=== PATIENT | male | born 1935 | race Caucasian/White ===

== ENCOUNTER → 2018-12-26 | Outpatient (CLI) | payer MEDICARE ==
[2018-12-12 07:00] VITALS: BP 165/89
[~2018-12-26] MED LIST: ALBU2.5V8 INH; ALLO100T PO; ASPI81TA50 PO; ATOR20TA58 PO; BUPR150T6 PO; CITA20TA6 PO; CYAN-25 PO; DOXY100T PO; ERGO500027 PO; GUAI100L12 PO; LIDO700A21 TD; PANT40TA77 PO
--- NOTE | 2018-12-26 13:00 | RAD ---
Chest, PA and Lateral: Technique: PA and lateral views of the chest were obtained. History: Pneumothorax. Comparison: 12/12/2018. Findings: The cardiomediastinal silhouette grossly appears unremarkable. Peripheral consolidation changes identified in the right upper lobe, left midlung zone and in the left lung base similar to prior exam probably chronic consolidations. Diffuse prominent appearing bilateral interstitial lung markings likely chronic interstitial changes again identified. Mild left lung base airspace opacities likely atelectasis or infiltrates slightly increased since prior exam. Small left pneumothorax is unchanged. IMPRESSION: 1. Chronic consolidations of the bilateral lungs again identified. 2. Small left pneumothorax unchanged. 3. Left lung base airspace opacities likely atelectasis or infiltrates mildly increased.. Electronically signed by: Abebe Zepeda MD (12/26/2018 12:57 PM) [id number]
== END | disposition home or self-care (01) ==
LOC: RAD 11:43
PROVIDERS: ATTEND Internal Medicine Critical Care Medicine
DX: R91.8 Other nonspecific abnormal finding of lung field (principal); J93.9 Pneumothorax, unspecified
CPT/HCPCS: 71046

== ENCOUNTER 2019-01-08 15:51 | Inpatient (IN) | payer MEDICARE ==
[~2019-01-08] VITALS: Ht 175.3 cm; Wt 56.2 kg
[2019-01-08 17:00] VITALS: BP 106/69
[2019-01-08 19:00] VITALS: BP 90/45
[2019-01-08] MEDS ORDERED: guaiFENesin ORAL 200 MG/10 ML LIQUID. PO PRN (19:00)
--- NOTE | 2019-01-08 19:06 | PDOC1 ---
History and Physical Date of Admission Date of Admission DATE: 01/08/19 TIME: 19:00 Source Source: Caregiver, Chart review, Patient History of Present Illness History of Present Illness Mr. Yusuf was hospitalized here 12/06 to 12/12 for pneumonia, pleural effusion and small pneumothorax. treated with antibiotics and he had felt well, but for the past 2 weeks, he has been declining, with worsening weakness and fatigue. He is sleeping most of the days, and describes a "feeling of doom" that he is getting worse. He has depression, was recently stopped on his wellbutrin, I am unsure why. he feels marked fatigue and has cough at times and ongoing trouble breathing. 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 Past Medical History Cardiovascular: CAD, HTN, Hyperlipidemia Pulmonary: Pneumonia GI: No pertinent hx Heme/Onc: No pertinent hx Hepatobiliary: No pertinent hx Psych: No pertinent hx Rheumatologic: Gout Infectious disease: No pertinent hx Renal/: No pertinent hx Endocrine: No pertinent hx Past Surgical History Past Surgical History: No pertinent history Family History Family History: Alcohol Abuse, High Cholestrol, Hypertension Social History Smoke: No ALCOHOL: other Drugs: None Current Medications Current Medications Current Medications Allopurinol (Zyloprim) 100 mg HS PO ; Start 01/08/19 at 21:00; Status UNV Aspirin (Ecotrin) 81 mg HS PO ; Start 01/08/19 at 21:00; Status UNV Atorvastatin Calcium (Lipitor) 20 mg HS PO ; Start 01/08/19 at 21:00; Status UNV Citalopram Hydrobromide (CeleXA) 20 mg HS PO ; Start 01/08/19 at 21:00; Status UNV Cyanocobalamin (Vitamin B-12) 1,000 mcg DAILY PO ; Start 01/09/19 at 09:00; Status UNV Guaifenesin (Robitussin) 200 mg PRN Q4HRS PRN PO COUGH; Start 01/08/19 at 19:00; Status UNV Lidocaine (Lidoderm) 1 patch DAILY TD ; Start 01/09/19 at 09:00; Status UNV Pantoprazole Sodium (Protonix) 40 mg HS PO ; Start 01/08/19 at 21:00; Status UNV Miscellaneous (Lidoderm Patch Removal) 1 ea QHS MC ; Start 01/08/19 at 21:00; Status UNV Zolpidem Tartrate (Ambien) 5 mg HS PO ; Start 01/08/19 at 21:00; Status UNV Lorazepam (Ativan Inj) 2 mg PRN Q1HR PRN IV For CIWA 8-14; Start 01/08/19 at 19:00; Status UNV Lorazepam (Ativan Inj) 4 mg PRN Q1HR PRN IV For CIWA 15 or greater; Start 01/08/19 at 19:00; Status UNV Lorazepam (Ativan) 0.5 mg PRN Q8HRS PRN PO ANXIETY / AGITATION; Start 01/08/19 at 19:00; Status UNV Active Scripts Active Proair Hfa Inhaler (Albuterol Sulfate) 8.5 Gm Hfa.aer.ad 1 Puff INH PRN Q6HRS PRN 30 Days Lidocaine PATCH (Lidocaine) 1 Each Adh..patch 1 Patch TD DAILY Vitamin D2 (Ergocalciferol (Vitamin D2)) 50,000 Unit Capsule 50,000 Unit PO WEEKLY Vitamin B-12 (Cyanocobalamin (Vitamin B-12)) 1,000 Mcg Tablet 1,000 Mcg PO DAILY Guaifenesin 100 Mg/5 Ml Liquid 200 Mg PO PRN Q4HRS PRN 7 Days Doxycycline Hyclate 100 Mg Tablet 100 Mg PO BID Reported Bupropion Xl (Bupropion Hcl) 150 Mg Tab.er.24h 75 Mg PO HS Protonix (Pantoprazole Sodium) 40 Mg Tablet. 40 Mg PO HS Citalopram Hbr (Citalopram Hydrobromide) 20 Mg Tablet 20 Mg PO HS Allopurinol 100 Mg Tablet 100 Mg PO HS Atorvastatin Calcium 20 Mg Tablet 20 Mg PO HS Aspir-Low (Aspirin) 81 Mg Tablet. 81 Mg PO HS Allergies Allergies: Coded Allergies: lisinopril (Verified Allergy, Severe, THROAT CLOSING, 12/06/18) Physical Exam General: Alert, Oriented X3, Cooperative, No acute distress HEENT: PERRLA, Mucous membr. moist/pink Lungs: Clear to auscultation, Normal air movement Heart: S1S2, RRR, no murmurs, other (tachy) Abdomen: Normal bowel sounds, Soft PELVIC: Nml ext uterus Extremities: No cyanosis, No edema, Normal pulses Skin: No significant lesion Neuro: Normal gait, Sensation intact, Cranial nerves 3-12 NL Psych/Mental Status: Mental status NL, Mood NL Vitals Vitals Vital Signs Date Time Temp Pulse Resp B/P (MAP) Pulse Ox O2 Delivery O2 Flow Rate FiO2 01/08/19 17:00 97.7 100 24 106/69 (81) 94 Room Air 97.7 VTE Prophylaxis Ordered VTE Prophylaxis Devices: Yes VTE Pharmacological Prophylaxi: Yes Assessment/Plan Assessment/Plan weakness and debility recent pneumonia 1 month ago, traumatic left-sided small pneumothorax. 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
[2019-01-08] MEDS ORDERED: [UNRECOGNIZED DRUG - OTHER] (20:34)
[2019-01-08] MEDS: PATCH REMOVAL. MC SCH (21:00)
[2019-01-08] MEDS: PANTOPRAZOLE 40 MG TABLET.DR. PO SCH (21:01)
[2019-01-08] MEDS: CITALOPRAM 20 MG TABLET. PO SCH (21:01)
[2019-01-08] MEDS: ATORVASTATIN CALCIUM 20 MG TABLET PO SCH (21:02)
[2019-01-08] MEDS: ASPIRIN ENTERIC COATED 81 MG TABLET.DR. PO SCH (21:02)
[2019-01-08] MEDS: ZOLPIDEM 5 MG TABLET. PO SCH (21:02)
[2019-01-08] MEDS: ALLOPURINOL 100 MG TABLET. PO SCH (21:02)
[2019-01-08 23:00] VITALS: BP 104/69
[2019-01-09] MEDS: LORazepam 0.5 MG TABLET PO PRN ×2 (00:40→22:19)
[2019-01-09 03:00] VITALS: BP 119/52
[2019-01-09 04:15] LABS: BASO % 1 % (0-3); EOS # 0.1 x10^3/uL (0.0-0.7); EOS % 1 % (0-3); HEMOGLOBIN 10.2 g/dL (13.0-17.5); LYMPH # 1.6 x10^3/uL (1.0-4.8); LYMPH % 24 % (24-48); MEAN CORPUSCULAR HEMOGLOBIN 31 pg (25-35); MEAN CORPUSCULAR HGB CONC 34 g/dL (31-37); MEAN CORPUSCULAR VOLUME 91 fL (79-100); MONO # 0.9 x10^3/uL (0.0-1.1); MONO % 14 % (0-9); NEUT # 4.1 x10^3/uL (1.8-7.7); NEUT % 61 % (31-73); PLATELET COUNT 405 x10^3/uL (140-400); RED BLOOD COUNT 3.28 x10^6/uL (4.30-5.70); RED CELL DISTRIBUTION WIDTH 14.8 % (11.5-14.5); WHITE BLOOD COUNT 6.7 x10^3/uL (4.0-11.0)
[2019-01-09 04:49] LABS: ALBUMIN 2.3 g/dL (3.4-5.0); ALBUMIN/GLOBULIN RATIO 0.5 (1.0-1.7); CALCIUM 9.3 mg/dL (8.5-10.1); CREATININE 1.2 mg/dL (0.7-1.3); GFR 57.7; POTASSIUM 4.8 mmol/L (3.5-5.1); TOTAL BILIRUBIN 0.4 mg/dL (0.2-1.0); TOTAL PROTEIN 6.9 g/dL (6.4-8.2)
[2019-01-09 07:00] VITALS: BP 113/64
--- NOTE | 2019-01-09 09:11 | RAD ---
CT CHEST WO CONTRAST INDICATION: Organizing pneumonia, recent infection. COMPARISON STUDY: CT chest 12/06/2018. Chest radiograph 01/08/2019. TECHNIQUE: Unenhanced axial images were obtained through the lungs and upper abdomen. Coronal MIP images and coronal and sagittal multiplanar reconstructions were also obtained. PQRS compliance statement: One or more of the following individualized dose reduction techniques were utilized for this examination: 1. Automated exposure control 2. Adjustment of the mA and/or kV according to patient size 3. Use of iterative reconstruction technique FINDINGS: Lungs and Airways: Redemonstration of multifocal bilateral peripheral subpleural consolidations, overall very similar to the prior CT. Bronchial wall thickening. Left lower lobe volume loss and traction bronchiectasis. Scattered endobronchial secretions. Pleura: Persistent small left hydropneumothorax, similar to the prior radiograph allowing for differences in modality. Heart and Mediastinum: The visualized thyroid gland is normal in size and attenuation. No axillary or supraclavicular lymphadenopathy. Stable mediastinal lymphadenopathy, for example stable enlarged right lower paratracheal lymph node measuring 1.1 cm (series 2 image 25). Evaluation of hilar lymph nodes impaired by lack of intravenous contrast. Normal cardiac size. No pericardial effusion. Extensive coronary artery atherosclerotic disease. Atherosclerosis thoracic aorta and branch vessels. Small hiatal hernia. Abdomen: Atherosclerosis of the abdominal aorta and branch vessels. Partially visualized cysts. Bones and Soft Tissues: Multilevel degenerative changes of the spine. Old rib fractures. IMPRESSION: 1. Redemonstration of multifocal bilateral peripheral subpleural consolidations, similar overall in distribution to the prior CT. This likely relates to patient's history of organizing pneumonia, although superimposed infection would be difficult to exclude. 2. Persistent small left hydropneumothorax, similar to the prior radiograph allowing for difference in modality. 3. Stable mediastinal lymphadenopathy. Electronically signed by: Matthew Schofield MD (01/09/2019 9:08 AM) [id number]
[2019-01-09] MEDS: CYANOCOBALAMIN (VITAMIN B-12) 1,000 MCG TABLET. PO SCH (09:13)
[2019-01-09] MEDS: LIDOCAINE (700MG/PATCH) PATCH. TD SCH (09:14)
[2019-01-09 10:59] VITALS: BP 101/65
[2019-01-09 11:00] VITALS: BP 101/65
--- NOTE | 2019-01-09 14:27 | NUR ---
SW following pt for dc planning. Chart reviewed and discussed with RN. Pt lives at home with spouse. No dc recommendation/SW needs noted at this time. Will continue to follow pt pending dc needs.
[2019-01-09 15:00] VITALS: BP 109/62
--- NOTE | 2019-01-09 16:39 | PDOC ---
PROGRESS NOTES Chief Complaint Chief Complaint weakness and debility BOOP, pneumonia 1 month ago, traumatic left-sided small pneumothorax. prior bilateral parenchymal infiltrates weight loss History of Present Illness History of Present Illness discussed with Dr. Gross, CT reviewed, fluid and infiltrate Vitals Vitals Vital Signs Date Time Temp Pulse Resp B/P (MAP) Pulse Ox O2 Delivery O2 Flow Rate FiO2 01/09/19 15:00 97.9 98 18 109/62 (78) 94 Room Air 97.9 Physical Exam General: Alert, Oriented X3, Cooperative, No acute distress Lungs: Clear Abdomen: Normal bowel sounds, Soft Extremities: No cyanosis, No edema, Normal pulses Skin: No significant lesion Labs LABS Laboratory Tests Test 01/09/19 03:20 White Blood Count 6.7 x10^3/uL (4.0-11.0) Red Blood Count 3.28 x10^6/uL (4.30-5.70) Hemoglobin 10.2 g/dL (13.0-17.5) Hematocrit 30.0 % (39.0-53.0) Mean Corpuscular Volume 91 fL (79-100) Mean Corpuscular Hemoglobin 31 pg (25-35) Mean Corpuscular Hemoglobin Concent 34 g/dL (31-37) Red Cell Distribution Width 14.8 % (11.5-14.5) Platelet Count 405 x10^3/uL (140-400) Neutrophils (%) (Auto) 61 % (31-73) Lymphocytes (%) (Auto) 24 % (24-48) Monocytes (%) (Auto) 14 % (0-9) Eosinophils (%) (Auto) 1 % (0-3) Basophils (%) (Auto) 1 % (0-3) Neutrophils # (Auto) 4.1 x10^3/uL (1.8-7.7) Lymphocytes # (Auto) 1.6 x10^3/uL (1.0-4.8) Monocytes # (Auto) 0.9 x10^3/uL (0.0-1.1) Eosinophils # (Auto) 0.1 x10^3/uL (0.0-0.7) Basophils # (Auto) 0.0 x10^3/uL (0.0-0.2) Sodium Level 132 mmol/L (136-145) Potassium Level 4.8 mmol/L (3.5-5.1) Chloride Level 97 mmol/L (98-107) Carbon Dioxide Level 26 mmol/L (21-32) Anion Gap 9 (6-14) Blood Urea Nitrogen 18 mg/dL (8-26) Creatinine 1.2 mg/dL (0.7-1.3) Estimated GFR (Cockcroft-Gault) 57.7 BUN/Creatinine Ratio 15 (6-20) Glucose Level 94 mg/dL (70-99) Calcium Level 9.3 mg/dL (8.5-10.1) Total Bilirubin 0.4 mg/dL (0.2-1.0) Aspartate Amino Transf (AST/SGOT) 17 U/L (15-37) Alanine Aminotransferase (ALT/SGPT) 15 U/L (16-63) Alkaline Phosphatase 68 U/L (46-116) Total Protein 6.9 g/dL (6.4-8.2) Albumin 2.3 g/dL (3.4-5.0) Albumin/Globulin Ratio 0.5 (1.0-1.7) Assessment and Plan Assessmemt and Plan Problems Medical Problems: (1) Weakness Status: Acute Comment Review of Relevant I have reviewed the following items dawn (where applicable) has been applied. Labs Laboratory Tests Test 01/09/19 03:20 White Blood Count 6.7 x10^3/uL (4.0-11.0) Red Blood Count 3.28 x10^6/uL (4.30-5.70) Hemoglobin 10.2 g/dL (13.0-17.5) Hematocrit 30.0 % (39.0-53.0) Mean Corpuscular Volume 91 fL (79-100) Mean Corpuscular Hemoglobin 31 pg (25-35) Mean Corpuscular Hemoglobin Concent 34 g/dL (31-37) Red Cell Distribution Width 14.8 % (11.5-14.5) Platelet Count 405 x10^3/uL (140-400) Neutrophils (%) (Auto) 61 % (31-73) Lymphocytes (%) (Auto) 24 % (24-48) Monocytes (%) (Auto) 14 % (0-9) Eosinophils (%) (Auto) 1 % (0-3) Basophils (%) (Auto) 1 % (0-3) Neutrophils # (Auto) 4.1 x10^3/uL (1.8-7.7) Lymphocytes # (Auto) 1.6 x10^3/uL (1.0-4.8) Monocytes # (Auto) 0.9 x10^3/uL (0.0-1.1) Eosinophils # (Auto) 0.1 x10^3/uL (0.0-0.7) Basophils # (Auto) 0.0 x10^3/uL (0.0-0.2) Sodium Level 132 mmol/L (136-145) Potassium Level 4.8 mmol/L (3.5-5.1) Chloride Level 97 mmol/L (98-107) Carbon Dioxide Level 26 mmol/L (21-32) Anion Gap 9 (6-14) Blood Urea Nitrogen 18 mg/dL (8-26) Creatinine 1.2 mg/dL (0.7-1.3) Estimated GFR (Cockcroft-Gault) 57.7 BUN/Creatinine Ratio 15 (6-20) Glucose Level 94 mg/dL (70-99) Calcium Level 9.3 mg/dL (8.5-10.1) Total Bilirubin 0.4 mg/dL (0.2-1.0) Aspartate Amino Transf (AST/SGOT) 17 U/L (15-37) Alanine Aminotransferase (ALT/SGPT) 15 U/L (16-63) Alkaline Phosphatase 68 U/L (46-116) Total Protein 6.9 g/dL (6.4-8.2) Albumin 2.3 g/dL (3.4-5.0) Albumin/Globulin Ratio 0.5 (1.0-1.7) Laboratory Tests Test 01/09/19 03:20 White Blood Count 6.7 x10^3/uL (4.0-11.0) Red Blood Count 3.28 x10^6/uL (4.30-5.70) Hemoglobin 10.2 g/dL (13.0-17.5) Hematocrit 30.0 % (39.0-53.0) Mean Corpuscular Volume 91 fL (79-100) Mean Corpuscular Hemoglobin 31 pg (25-35) Mean Corpuscular Hemoglobin Concent 34 g/dL (31-37) Red Cell Distribution Width 14.8 % (11.5-14.5) Platelet Count 405 x10^3/uL (140-400) Neutrophils (%) (Auto) 61 % (31-73) Lymphocytes (%) (Auto) 24 % (24-48) Monocytes (%) (Auto) 14 % (0-9) Eosinophils (%) (Auto) 1 % (0-3) Basophils (%) (Auto) 1 % (0-3) Neutrophils # (Auto) 4.1 x10^3/uL (1.8-7.7) Lymphocytes # (Auto) 1.6 x10^3/uL (1.0-4.8) Monocytes # (Auto) 0.9 x10^3/uL (0.0-1.1) Eosinophils # (Auto) 0.1 x10^3/uL (0.0-0.7) Basophils # (Auto) 0.0 x10^3/uL (0.0-0.2) Sodium Level 132 mmol/L (136-145) Potassium Level 4.8 mmol/L (3.5-5.1) Chloride Level 97 mmol/L (98-107) Carbon Dioxide Level 26 mmol/L (21-32) Anion Gap 9 (6-14) Blood Urea Nitrogen 18 mg/dL (8-26) Creatinine 1.2 mg/dL (0.7-1.3) Estimated GFR (Cockcroft-Gault) 57.7 BUN/Creatinine Ratio 15 (6-20) Glucose Level 94 mg/dL (70-99) Calcium Level 9.3 mg/dL (8.5-10.1) Total Bilirubin 0.4 mg/dL (0.2-1.0) Aspartate Amino Transf (AST/SGOT) 17 U/L (15-37) Alanine Aminotransferase (ALT/SGPT) 15 U/L (16-63) Alkaline Phosphatase 68 U/L (46-116) Total Protein 6.9 g/dL (6.4-8.2) Albumin 2.3 g/dL (3.4-5.0) Albumin/Globulin Ratio 0.5 (1.0-1.7) Medications Current Medications Allopurinol (Zyloprim) 100 mg HS PO Last administered on 01/08/19at 21:03; Start 01/08/19 at 21:00 Aspirin (Ecotrin) 81 mg HS PO Last administered on 01/08/19 21:03; Start 01/08/19 at 21:00 Atorvastatin Calcium (Lipitor) 20 mg HS PO Last administered on 01/08/19 21:03; Start 01/08/19 at 21:00 Citalopram Hydrobromide (CeleXA) 20 mg HS PO Last administered on 01/08/19 21:03; Start 01/08/19 at 21:00 Cyanocobalamin (Vitamin B-12) 1,000 mcg DAILY PO Last administered on 01/09/19 09:14; Start 01/09/19 at 09:00 Guaifenesin (Robitussin) 200 mg PRN Q4HRS PRN PO COUGH; Start 01/08/19 at 19:00 Lidocaine (Lidoderm) 1 patch DAILY TD ; Start 01/09/19 at 09:00 Pantoprazole Sodium (Protonix) 40 mg HS PO Last administered on 01/08/19 21:03; Start 01/08/19 at 21:00 Miscellaneous (Lidoderm Patch Removal) 1 ea QHS MC Last administered on 01/08/19 21:03; Start 01/08/19 at 21:00 Zolpidem Tartrate (Ambien) 5 mg HS PO Last administered on 01/08/19 21:03; Start 01/08/19 at 21:00 Lorazepam (Ativan Inj) 2 mg PRN Q1HR PRN IV For CIWA 8-14; Start 01/08/19 at 19:00 Lorazepam (Ativan Inj) 4 mg PRN Q1HR PRN IV For CIWA 15 or greater; Start 01/08/19 at 19:00 Lorazepam (Ativan) 0.5 mg PRN Q8HRS PRN PO ANXIETY / AGITATION Last administer ed on 01/09/19at 00:41; Start 01/08/19 at 19:00 Non-Formulary Medication 1 ea DAILYWSUP PO ; Start 01/09/19 at 17:00; Stop 01/08/19 at 20:03; Status DC Levofloxacin/ Dextrose 100 ml @ 100 mls/hr Q24H IV Last administered on 01/08/19 21:03; Start 01/08/19 at 19:30 Non-Formulary Medication 1 ea DAILYWSUP PO ; Start 01/09/19 at 17:00 Lactobacillus Rhamnosus (Culturelle) 1 cap BID PO ; Start 01/09/19 at 21:00 Active Scripts Active Proair Hfa Inhaler (Albuterol Sulfate) 8.5 Gm Hfa.aer.ad 1 Puff INH PRN Q6HRS PRN 30 Days Lidocaine PATCH (Lidocaine) 1 Each Adh..patch 1 Patch TD DAILY Vitamin D2 (Ergocalciferol (Vitamin D2)) 50,000 Unit Capsule 50,000 Unit PO WEEKLY Vitamin B-12 (Cyanocobalamin (Vitamin B-12)) 1,000 Mcg Tablet 1,000 Mcg PO DAILY Guaifenesin 100 Mg/5 Ml Liquid 200 Mg PO PRN Q4HRS PRN 7 Days Doxycycline Hyclate 100 Mg Tablet 100 Mg PO BID Reported [lactob] Bupropion Xl (Bupropion Hcl) 150 Mg Tab.er.24h 75 Mg PO HS Protonix (Pantoprazole Sodium) 40 Mg Tablet. 40 Mg PO HS Citalopram Hbr (Citalopram Hydrobromide) 20 Mg Tablet 20 Mg PO HS Allopurinol 100 Mg Tablet 100 Mg PO HS Atorvastatin Calcium 20 Mg Tablet 20 Mg PO HS Aspir-Low (Aspirin) 81 Mg Tablet. 81 Mg PO HS Vitals/I & O Vital Sign - Last 24 Hours 01/08/19 01/08/19 01/08/19 01/08/19 17:00 18:00 19:00 20:00 Temp 97.7 97.6 97.7 97.6 Pulse 100 94 Resp 24 24 B/P (MAP) 106/69 (81) 90/45 (60) Pulse Ox 94 90 O2 Delivery Room Air Room Air Room Air Room Air 01/08/19 01/09/19 01/09/19 01/09/19 23:00 03:00 07:00 10:59 Temp 99.0 98.4 97.7 98.5 99.0 98.4 97.7 98.5 Pulse 97 102 100 Resp 18 18 18 B/P (MAP) 104/69 (81) 119/52 (74) 113/64 (80) 101/65 (77) Pulse Ox 92 91 93 O2 Delivery Room Air Room Air Room Air 01/09/19 01/09/19 11:00 15:00 Temp 98.5 97.9 98.5 97.9 Pulse 97 98 Resp 16 18 B/P (MAP) 101/65 (77) 109/62 (78) Pulse Ox 91 94 O2 Delivery Room Air Room Air Intake and Output 01/08/19 01/08/19 01/09/19 15:00 23:00 07:00 Intake Total 0 ml Balance 0 ml CONSTANTINO PHELAN MD Jan 09, 2019 16:39
--- NOTE | 2019-01-09 16:55 | PDOC ---
PULMONARY PROGRESS NOTES Vitals Vital Signs Date Time Temp Pulse Resp B/P (MAP) Pulse Ox O2 Delivery O2 Flow Rate FiO2 01/09/19 15:00 97.9 98 18 109/62 (78) 94 Room Air 97.9 General: Alert, No acute distress HEENT: Other Lungs: Clear Cardiovascular: S1, S2 Abdomen: Soft, Non-tender Extremities: No Edema Labs Laboratory Tests Test 01/09/19 03:20 White Blood Count 6.7 x10^3/uL (4.0-11.0) Red Blood Count 3.28 x10^6/uL (4.30-5.70) Hemoglobin 10.2 g/dL (13.0-17.5) Hematocrit 30.0 % (39.0-53.0) Mean Corpuscular Volume 91 fL (79-100) Mean Corpuscular Hemoglobin 31 pg (25-35) Mean Corpuscular Hemoglobin Concent 34 g/dL (31-37) Red Cell Distribution Width 14.8 % (11.5-14.5) Platelet Count 405 x10^3/uL (140-400) Neutrophils (%) (Auto) 61 % (31-73) Lymphocytes (%) (Auto) 24 % (24-48) Monocytes (%) (Auto) 14 % (0-9) Eosinophils (%) (Auto) 1 % (0-3) Basophils (%) (Auto) 1 % (0-3) Neutrophils # (Auto) 4.1 x10^3/uL (1.8-7.7) Lymphocytes # (Auto) 1.6 x10^3/uL (1.0-4.8) Monocytes # (Auto) 0.9 x10^3/uL (0.0-1.1) Eosinophils # (Auto) 0.1 x10^3/uL (0.0-0.7) Basophils # (Auto) 0.0 x10^3/uL (0.0-0.2) Sodium Level 132 mmol/L (136-145) Potassium Level 4.8 mmol/L (3.5-5.1) Chloride Level 97 mmol/L (98-107) Carbon Dioxide Level 26 mmol/L (21-32) Anion Gap 9 (6-14) Blood Urea Nitrogen 18 mg/dL (8-26) Creatinine 1.2 mg/dL (0.7-1.3) Estimated GFR (Cockcroft-Gault) 57.7 BUN/Creatinine Ratio 15 (6-20) Glucose Level 94 mg/dL (70-99) Calcium Level 9.3 mg/dL (8.5-10.1) Total Bilirubin 0.4 mg/dL (0.2-1.0) Aspartate Amino Transf (AST/SGOT) 17 U/L (15-37) Alanine Aminotransferase (ALT/SGPT) 15 U/L (16-63) Alkaline Phosphatase 68 U/L (46-116) Total Protein 6.9 g/dL (6.4-8.2) Albumin 2.3 g/dL (3.4-5.0) Albumin/Globulin Ratio 0.5 (1.0-1.7) Laboratory Tests Test 01/09/19 03:20 White Blood Count 6.7 x10^3/uL (4.0-11.0) Red Blood Count 3.28 x10^6/uL (4.30-5.70) Hemoglobin 10.2 g/dL (13.0-17.5) Hematocrit 30.0 % (39.0-53.0) Mean Corpuscular Volume 91 fL (79-100) Mean Corpuscular Hemoglobin 31 pg (25-35) Mean Corpuscular Hemoglobin Concent 34 g/dL (31-37) Red Cell Distribution Width 14.8 % (11.5-14.5) Platelet Count 405 x10^3/uL (140-400) Neutrophils (%) (Auto) 61 % (31-73) Lymphocytes (%) (Auto) 24 % (24-48) Monocytes (%) (Auto) 14 % (0-9) Eosinophils (%) (Auto) 1 % (0-3) Basophils (%) (Auto) 1 % (0-3) Neutrophils # (Auto) 4.1 x10^3/uL (1.8-7.7) Lymphocytes # (Auto) 1.6 x10^3/uL (1.0-4.8) Monocytes # (Auto) 0.9 x10^3/uL (0.0-1.1) Eosinophils # (Auto) 0.1 x10^3/uL (0.0-0.7) Basophils # (Auto) 0.0 x10^3/uL (0.0-0.2) Sodium Level 132 mmol/L (136-145) Potassium Level 4.8 mmol/L (3.5-5.1) Chloride Level 97 mmol/L (98-107) Carbon Dioxide Level 26 mmol/L (21-32) Anion Gap 9 (6-14) Blood Urea Nitrogen 18 mg/dL (8-26) Creatinine 1.2 mg/dL (0.7-1.3) Estimated GFR (Cockcroft-Gault) 57.7 BUN/Creatinine Ratio 15 (6-20) Glucose Level 94 mg/dL (70-99) Calcium Level 9.3 mg/dL (8.5-10.1) Total Bilirubin 0.4 mg/dL (0.2-1.0) Aspartate Amino Transf (AST/SGOT) 17 U/L (15-37) Alanine Aminotransferase (ALT/SGPT) 15 U/L (16-63) Alkaline Phosphatase 68 U/L (46-116) Total Protein 6.9 g/dL (6.4-8.2) Albumin 2.3 g/dL (3.4-5.0) Albumin/Globulin Ratio 0.5 (1.0-1.7) Medications Active Scripts Medications Dose Route/Sig Max Daily Dose Days Date Category [lactob] 01/08/19 Reported Proair Hfa Inhaler (Albuterol Sulfate) 8.5 Gm Hfa.aer.ad 1 Puff INH PRN Q6HRS PRN 30 12/12/18 Rx Lidocaine PATCH (Lidocaine) 1 Each Adh..patch 1 Patch TD DAILY 12/12/18 Rx Vitamin D2 (Ergocalciferol (Vitamin D2)) 50,000 Unit Capsule 50,000 Unit PO WEEKLY 12/12/18 Rx Vitamin B-12 (Cyanocobalamin (Vitamin B-12)) 1,000 Mcg Tablet 1,000 Mcg PO DAILY 12/12/18 Rx Guaifenesin 100 Mg/5 Ml Liquid 200 Mg PO PRN Q4HRS PRN 7 12/12/18 Rx Doxycycline Hyclate 100 Mg Tablet 100 Mg PO BID 12/12/18 Rx Bupropion Xl (Bupropion Hcl) 150 Mg Tab.er.24h 75 Mg PO HS 12/06/18 Reported Protonix (Pantoprazole Sodium) 40 Mg Tablet.dr 40 Mg PO HS 12/06/18 Reported Citalopram Hbr (Citalopram Hydrobromide) 20 Mg Tablet 20 Mg PO HS 12/06/18 Reported Allopurinol 100 Mg Tablet 100 Mg PO HS 12/06/18 Reported Atorvastatin Calcium 20 Mg Tablet 20 Mg PO HS 12/06/18 Reported Aspir-Low (Aspirin) 81 Mg Tablet. 81 Mg PO HS 12/06/18 Reported Impression . NOTE DICTATED WILL PROCEED WITH BRONCH FOR NOW CONTINUE THE SAME IRA GRIER MD Jan 09, 2019 16:55
[2019-01-09] MEDS ORDERED: NON FORMULARY ITEM PO SCH (17:00)
[2019-01-09] MEDS: NON FORMULARY ITEM PO SCH (17:01)
[2019-01-09 19:00] VITALS: BP 108/65
[2019-01-09] MEDS: ALLOPURINOL 100 MG TABLET. PO SCH (20:07)
[2019-01-09] MEDS: ZOLPIDEM 5 MG TABLET. PO SCH (20:07)
[2019-01-09] MEDS: LACTOBACILLUS RHAMNOSUS GG 1 CAPSULE. PO SCH (20:07)
[2019-01-09] MEDS: ATORVASTATIN CALCIUM 20 MG TABLET PO SCH (20:08)
[2019-01-09] MEDS: CITALOPRAM 20 MG TABLET. PO SCH (20:08)
[2019-01-09] MEDS: ASPIRIN ENTERIC COATED 81 MG TABLET.DR. PO SCH (20:08)
[2019-01-09] MEDS: PANTOPRAZOLE 40 MG TABLET.DR. PO SCH (20:08)
[2019-01-09] MEDS: PATCH REMOVAL. MC SCH (20:26)
--- NOTE | 2019-01-09 23:03 | CONS ---
DATE OF CONSULTATION: 01/09/2019 ATTENDING PHYSICIAN: Dr. Carter. REASON FOR CONSULTATION: The patient seen in pulmonary consultation at the request of Dr. Carter for abnormal CT chest. HISTORY OF PRESENT ILLNESS: The patient is an 83-year-old that is normally followed by my partner, Dr. Gross in the office. 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 He has chronic bilateral parenchymal infiltrates that have not significantly improved from the previous x-ray. He was seen in the office. The patient complains of low energy level and he is also losing a great deal of weight. He was admitted to the hospital. I was asked to see him in consultation. He did undergo a repeat CT chest. I personally reviewed the CT. There were several findings including multifocal bilateral peripheral subpleural consolidation similar to the previous CT chest dated 12/06/2018. He also has a persistent small left hydropneumothorax similar to previous exam and some stable lymphadenopathy. PAST MEDICAL HISTORY: Remarkable for: 1. Pneumonia, which was initially diagnosed in 04/2018. 2. Presumptive BOOP. 3. History of cataracts. 4. Hyperlipidemia 5. Hypertension. 6. Coronary artery disease with previous stent placement. 7. Cigar use in the past. 8. Possible chronic obstructive pulmonary disease. 9. Pneumonia as described above. 10. Gastroesophageal reflux disease. 11. Gout. FAMILY HISTORY: Father had CVA. No family history of lung cancer. REVIEW OF SYSTEMS: CONSTITUTIONAL: Subjective fever. EYES: No change in visual acuity. HENT: No nasal congestion or sore throat. PULMONARY: As indicated above. CARDIOVASCULAR: No chest pain. No pressure. GASTROINTESTINAL: No nausea, vomiting or diarrhea. GENITOURINARY: No dysuria or frequency. MUSCULOSKELETAL: No localized muscle aches or joint pains. SKIN: No new skin rashes. NEUROLOGIC: No headaches, diplopia or blurred vision. ALLERGIES: LISINOPRIL. HOME MEDICATIONS: List was reviewed. PHYSICAL EXAMINATION: VITAL SIGNS: Since admission, he has been afebrile. HEENT: Eyes, the sclerae were nonicteric. NECK: Jugular venous distention was not elevated. No lymphadenopathy. CHEST: Full expansion. LUNGS: Adequate airway flow with scattered rhonchi, some squeaky type of heart sounds. CARDIOVASCULAR: Regular rate and rhythm with S1, S2, no S3. ABDOMEN: Soft, nontender, and nondistended. EXTREMITIES: No clubbing, cyanosis or pitting edema. NEUROLOGIC: The patient was awake, alert, following commands. A detailed neuro exam was not performed. LABORATORY DATA: White count was normal. Hemoglobin and hematocrit were noted. Sodium was low. AST and ALT were noted. Albumin was low. IMPRESSION: 1. Persistent abnormal CT chest revealing multifocal bilateral peripheral subpleural consolidation. 2. Persistent small right-sided hydrothorax. 3. Mediastinal adenopathy. 4. Severe weight loss. 5. Progressive dyspnea with exertion. 6. Hypertension. 7. Coronary artery disease with previous stent placement. 8. Severe protein malnutrition, present upon admission. PLAN: 1. I have reviewed the above findings with both the patient and his . We will proceed with a diagnostic bronchoscopy. 2. We discussed the case with Dr. Gross. Both he and I agree that the hydropneumothorax has not changed in size and is not currently causing any great difficulty. We will monitor for now. 3. Continue home meds. 4. I reviewed the risks, benefits and alternatives to bronchoscopy. The patient has agreed to undergo as consented. I do appreciate the privilege in sharing in the care. IRA GRIER MD DR: JUNIOR/brandan JOB#: [id number] / [id number]
--- NOTE | 2019-01-10 01:20 | NUR ---
Patient was found on the floor at approximately 0110am. was at bedside. Injuries were noted, vitals were taken, patient was assisted back to bed. Nursing pipe and boiler covers supervisor notified, notified. No new orders at the time. Patient was made comfortable in bed with at bedside. Will continue to monitor.
[2019-01-10 03:00] VITALS: BP 114/64
--- NOTE | 2019-01-10 03:32 | NUR ---
During hourly rounds at appx 0310 staff entered room and bed alarm had been turned off and the patient was walking into bathroom as shut bathroom door leaving patient alone. Staff went into bathroom with patient and assisted him back to bed. Education was provided that patient should use call light and staff needed to assist him during all ambulations. stated that patient moved so fast and she wasn't sure the call light could be used in time. At this moment education was provided that the bed alarm being activated notifies staff that assistance is needed and respond immediately. Patient and agreed to use call light and to allow staff to assist patient.
[2019-01-10] MEDS ORDERED: IV RINGERS,LACTATED 1000ML 1,000 ML IV ONE (06:30)
[2019-01-10 07:00] VITALS: BP 111/71
--- NOTE | 2019-01-10 08:39 | PDOC ---
PULMONARY PROGRESS NOTES Subjective PT ABOUT THE SAME NO INCREASE SOA Vitals Vital Signs Date Time Temp Pulse Resp B/P (MAP) Pulse Ox O2 Delivery O2 Flow Rate FiO2 01/10/19 03:00 97.9 95 18 114/64 (81) 92 Room Air 97.9 ROS: No Nausea, No Abdominal Pain, No Increase Cough General: Alert, No acute distress Lungs: Clear Cardiovascular: S1, S2 Abdomen: Soft, Non-tender Neuro Exam: Alert Extremities: No Edema Labs Laboratory Tests Test 01/09/19 03:20 White Blood Count 6.7 x10^3/uL (4.0-11.0) Red Blood Count 3.28 x10^6/uL (4.30-5.70) Hemoglobin 10.2 g/dL (13.0-17.5) Hematocrit 30.0 % (39.0-53.0) Mean Corpuscular Volume 91 fL (79-100) Mean Corpuscular Hemoglobin 31 pg (25-35) Mean Corpuscular Hemoglobin Concent 34 g/dL (31-37) Red Cell Distribution Width 14.8 % (11.5-14.5) Platelet Count 405 x10^3/uL (140-400) Neutrophils (%) (Auto) 61 % (31-73) Lymphocytes (%) (Auto) 24 % (24-48) Monocytes (%) (Auto) 14 % (0-9) Eosinophils (%) (Auto) 1 % (0-3) Basophils (%) (Auto) 1 % (0-3) Neutrophils # (Auto) 4.1 x10^3/uL (1.8-7.7) Lymphocytes # (Auto) 1.6 x10^3/uL (1.0-4.8) Monocytes # (Auto) 0.9 x10^3/uL (0.0-1.1) Eosinophils # (Auto) 0.1 x10^3/uL (0.0-0.7) Basophils # (Auto) 0.0 x10^3/uL (0.0-0.2) Sodium Level 132 mmol/L (136-145) Potassium Level 4.8 mmol/L (3.5-5.1) Chloride Level 97 mmol/L (98-107) Carbon Dioxide Level 26 mmol/L (21-32) Anion Gap 9 (6-14) Blood Urea Nitrogen 18 mg/dL (8-26) Creatinine 1.2 mg/dL (0.7-1.3) Estimated GFR (Cockcroft-Gault) 57.7 BUN/Creatinine Ratio 15 (6-20) Glucose Level 94 mg/dL (70-99) Calcium Level 9.3 mg/dL (8.5-10.1) Total Bilirubin 0.4 mg/dL (0.2-1.0) Aspartate Amino Transf (AST/SGOT) 17 U/L (15-37) Alanine Aminotransferase (ALT/SGPT) 15 U/L (16-63) Alkaline Phosphatase 68 U/L (46-116) Total Protein 6.9 g/dL (6.4-8.2) Albumin 2.3 g/dL (3.4-5.0) Albumin/Globulin Ratio 0.5 (1.0-1.7) Medications Active Scripts Medications Dose Route/Sig Max Daily Dose Days Date Category [lactob] 01/08/19 Reported Proair Hfa Inhaler (Albuterol Sulfate) 8.5 Gm Hfa.aer.ad 1 Puff INH PRN Q6HRS PRN 30 12/12/18 Rx Lidocaine PATCH (Lidocaine) 1 Each Adh..patch 1 Patch TD DAILY 12/12/18 Rx Vitamin D2 (Ergocalciferol (Vitamin D2)) 50,000 Unit Capsule 50,000 Unit PO WEEKLY 12/12/18 Rx Vitamin B-12 (Cyanocobalamin (Vitamin B-12)) 1,000 Mcg Tablet 1,000 Mcg PO DAILY 12/12/18 Rx Guaifenesin 100 Mg/5 Ml Liquid 200 Mg PO PRN Q4HRS PRN 7 12/12/18 Rx Doxycycline Hyclate 100 Mg Tablet 100 Mg PO BID 12/12/18 Rx Bupropion Xl (Bupropion Hcl) 150 Mg Tab.er.24h 75 Mg PO HS 12/06/18 Reported Protonix (Pantoprazole Sodium) 40 Mg Tablet.dr 40 Mg PO HS 12/06/18 Reported Citalopram Hbr (Citalopram Hydrobromide) 20 Mg Tablet 20 Mg PO HS 12/06/18 Reported Allopurinol 100 Mg Tablet 100 Mg PO HS 12/06/18 Reported Atorvastatin Calcium 20 Mg Tablet 20 Mg PO HS 12/06/18 Reported Aspir-Low (Aspirin) 81 Mg Tablet.dr 81 Mg PO HS 12/06/18 Reported Impression . IMPRESSION: 1. Persistent abnormal CT chest revealing multifocal bilateral peripheral subpleural consolidation. 2. Persistent small right-sided hydrothorax. 3. Mediastinal adenopathy. 4. Severe weight loss. 5. Progressive dyspnea with exertion. 6. Hypertension. 7. Coronary artery disease with previous stent placement. 8. Severe protein malnutrition, present upon admission. Plan . REVIEWED R/B/A TO BRONCH PT ACCEPTED CONTINUE ANTIBX STEROIDS IRA GRIER MD Jan 10, 2019 08:39
[2019-01-10] MEDS: LIDOCAINE (700MG/PATCH) PATCH. TD SCH (09:00)
[2019-01-10] MEDS ORDERED: LIDOCAINE 2% VISCOUS 100 ML BOTTLE. MM PRN (09:00)
[2019-01-10] MEDS ORDERED: EPINEPHrine 1 MG/ML VIAL INJ PRN (09:00)
[2019-01-10] MEDS ORDERED: ALBUTEROL SULFATE 2.5 MG/3 ML NEBU. NEB PRN (09:00)
[2019-01-10] MEDS ORDERED: LIDOCAINE 1% Multi-Dose 20 ML VIAL. INJ PRN (09:00)
[2019-01-10] MEDS ORDERED: LIDOCAINE 4% TOPICAL 50 ML SOLUTION. MM PRN (09:00)
[2019-01-10] MEDS ORDERED: LIDOCAINE 4% TOPICAL 50 ML SOLUTION. ONE (09:33)
[2019-01-10] MEDS ORDERED: EPINEPHrine 1 MG/ML VIAL ONE (09:33)
[2019-01-10] MEDS ORDERED: LIDOCAINE 1% Multi-Dose 20 ML VIAL. ONE (09:33)
[2019-01-10] MEDS ORDERED: LIDOCAINE 2% VISCOUS 100 ML BOTTLE. ONE (09:33)
[2019-01-10] MEDS ORDERED: IV RINGERS,LACTATED 1000ML 1,000 ML IV SCH (10:46)
[2019-01-10] MEDS ORDERED: MORPHINE SULFATE 2 MG/ML VIAL. IV PRN (11:00)
[2019-01-10] MEDS ORDERED: HYDROmorphone 2 MG/ML VIAL IV PRN (11:00)
[2019-01-10] MEDS ORDERED: fentaNYL PF VIAL 100 MCG/2 ML VIAL IV PRN ×2 (11:00)
[2019-01-10] MEDS ORDERED: PROCHLORPERAZINE 10 MG/2 ML VIAL. IV PRN (11:00)
[2019-01-10] MEDS ORDERED: PROPOFOL 20 ML IV ONE (11:05)
[2019-01-10 12:42] VITALS: BP 113/71
--- NOTE | 2019-01-10 13:18 | PDOC ---
PROGRESS NOTES Chief Complaint Chief Complaint weakness and debility BOOP, pneumonia 1 month ago, traumatic left-sided small pneumothorax. prior bilateral parenchymal infiltrates weight loss History of Present Illness History of Present Illness discussed with Dr. Gross, CT reviewed, fluid and infiltrate Vitals Vitals Vital Signs Date Time Temp Pulse Resp B/P (MAP) Pulse Ox O2 Delivery O2 Flow Rate FiO2 01/10/19 12:42 97.6 92 24 113/71 (85) 94 Simple Mask 2.0 97.6 Physical Exam General: Alert, Oriented X3, Cooperative, No acute distress Lungs: Clear Abdomen: Normal bowel sounds, Soft Extremities: No cyanosis, No edema, Normal pulses Skin: No significant lesion Assessment and Plan Assessmemt and Plan Problems Medical Problems: (1) CAD (coronary artery disease) Status: Chronic (2) HTN (hypertension) Status: Chronic (3) Weakness Status: Acute Comment Review of Relevant I have reviewed the following items dawn (where applicable) has been applied. Labs Laboratory Tests Test 01/09/19 03:20 White Blood Count 6.7 x10^3/uL (4.0-11.0) Red Blood Count 3.28 x10^6/uL (4.30-5.70) Hemoglobin 10.2 g/dL (13.0-17.5) Hematocrit 30.0 % (39.0-53.0) Mean Corpuscular Volume 91 fL (79-100) Mean Corpuscular Hemoglobin 31 pg (25-35) Mean Corpuscular Hemoglobin Concent 34 g/dL (31-37) Red Cell Distribution Width 14.8 % (11.5-14.5) Platelet Count 405 x10^3/uL (140-400) Neutrophils (%) (Auto) 61 % (31-73) Lymphocytes (%) (Auto) 24 % (24-48) Monocytes (%) (Auto) 14 % (0-9) Eosinophils (%) (Auto) 1 % (0-3) Basophils (%) (Auto) 1 % (0-3) Neutrophils # (Auto) 4.1 x10^3/uL (1.8-7.7) Lymphocytes # (Auto) 1.6 x10^3/uL (1.0-4.8) Monocytes # (Auto) 0.9 x10^3/uL (0.0-1.1) Eosinophils # (Auto) 0.1 x10^3/uL (0.0-0.7) Basophils # (Auto) 0.0 x10^3/uL (0.0-0.2) Sodium Level 132 mmol/L (136-145) Potassium Level 4.8 mmol/L (3.5-5.1) Chloride Level 97 mmol/L (98-107) Carbon Dioxide Level 26 mmol/L (21-32) Anion Gap 9 (6-14) Blood Urea Nitrogen 18 mg/dL (8-26) Creatinine 1.2 mg/dL (0.7-1.3) Estimated GFR (Cockcroft-Gault) 57.7 BUN/Creatinine Ratio 15 (6-20) Glucose Level 94 mg/dL (70-99) Calcium Level 9.3 mg/dL (8.5-10.1) Total Bilirubin 0.4 mg/dL (0.2-1.0) Aspartate Amino Transf (AST/SGOT) 17 U/L (15-37) Alanine Aminotransferase (ALT/SGPT) 15 U/L (16-63) Alkaline Phosphatase 68 U/L (46-116) Total Protein 6.9 g/dL (6.4-8.2) Albumin 2.3 g/dL (3.4-5.0) Albumin/Globulin Ratio 0.5 (1.0-1.7) Medications Current Medications Allopurinol (Zyloprim) 100 mg HS PO Last administered on 01/09/19 20:08; S tart 01/08/19 at 21:00 Aspirin (Ecotrin) 81 mg HS PO Last administered on 01/09/19 20:08; Start 01/08/19 at 21:00 Atorvastatin Calcium (Lipitor) 20 mg HS PO Last administered on 01/09/19 20:08; Start 01/08/19 at 21:00 Citalopram Hydrobromide (CeleXA) 20 mg HS PO Last administered on 01/09/19 20:08; Start 01/08/19 at 21:00 Cyanocobalamin (Vitamin B-12) 1,000 mcg DAILY PO Last administered on 01/09/19 09:14; Start 01/09/19 at 09:00 Guaifenesin (Robitussin) 200 mg PRN Q4HRS PRN PO COUGH; Start 01/08/19 at 19:00 Lidocaine (Lidoderm) 1 patch DAILY TD ; Start 01/09/19 at 09:00 Pantoprazole Sodium (Protonix) 40 mg HS PO Last administered on 01/09/19 20:08; Start 01/08/19 at 21:00 Miscellaneous (Lidoderm Patch Removal) 1 ea QHS MC Last administered on 12/28 21:03; Start 01/08/19 at 21:00 Zolpidem Tartrate (Ambien) 5 mg HS PO Last administered on 01/09/19 20:08; Start 01/08/19 at 21:00 Lorazepam (Ativan Inj) 2 mg PRN Q1HR PRN IV For CIWA 8-14; Start 01/08/19 at 19:00 Lorazepam (Ativan Inj) 4 mg PRN Q1HR PRN IV For CIWA 15 or greater; Start 01/08/19 at 19:00 Lorazepam (Ativan) 0.5 mg PRN Q8HRS PRN PO ANXIETY / AGITATION Last administered on 01/09/19at 22:19; Start 01/08/19 at 19:00 Non-Formulary Medication 1 ea DAILYWSUP PO ; Start 01/09/19 at 17:00; Stop 01/08/19 at 20:03; Status DC Levofloxacin/ Dextrose 100 ml @ 100 mls/hr Q24H IV Last administered on 01/09/19 20:08; Start 01/08/19 at 19:30 Non-Formulary Medication 1 ea DAILYWSUP PO Last administered on 01/09/19at 17:03; Start 01/09/19 at 17:00 Lactobacillus Rhamnosus (Culturelle) 1 cap BID PO Last administered on 01/09/19 20:08; Start 01/09/19 at 21:00 Ringer's Solution 1,000 ml @ 75 mls/hr 1X ONCE IV Last administered on 01/10/19 10:26; Start 01/10/19 at 06:30; Stop 01/10/19 at 19:49 Albuterol Sulfate (Ventolin Neb Soln) 2.5 mg PRN 1X PRN NEB SHORTNESS OF BREATH Last administered on 01/10/19 10:34; Start 01/10/19 at 09:00; Stop 01/11/19 at 08:59 Lidocaine HCl (Lidocaine 2% Viscous) 100 ml PRN 1X PRN MM MOUTH PAIN Last administered on 01/10/19at 10:33; Start 01/10/19 at 09:00; Stop 01/11/19 at 08:59 Lidocaine HCl (Lidocaine 1% 20ml Vial) 20 ml PRN 1X PRN INJ SEE COMMENTS Last administered on 01/10/19at 10:35; Start 01/10/19 at 09:00; Stop 01/11/19 at 08:59 Epinephrine HCl (Adrenalin) 1 mg PRN 1X PRN INJ SEE COMMENTS; Start 01/10/19 at 09:00; Stop 01/11/19 at 08:59 Lidocaine HCl 50 ml PRN 1X PRN MM SEE COMMENTS Last administered on 01/10/19at 10:34; Start 01/10/19 at 09:00; Stop 01/11/19 at 08:59 Epinephrine HCl (Adrenalin) 1 mg STK-MED ONCE .ROUTE ; Start 01/10/19 at 09:33; Stop 01/10/19 at 09:34; Status DC Lidocaine HCl (Lidocaine 1% 20ml Vial) 20 ml STK-MED ONCE .ROUTE ; Start 01/10/19 at 09:33; Stop 01/10/19 at 09:34; Status DC Lidocaine HCl (Lidocaine 2% Viscous) 100 ml STK-MED ONCE .ROUTE ; Start 01/10/19 at 09:33; Stop 01/10/19 at 09:34; Status DC Lidocaine HCl 50 ml STK-MED ONCE .ROUTE ; Start 01/10/19 at 09:33; Stop 01/10/19 at 09:34; Status DC Fentanyl Citrate (Fentanyl 2ml Vial) 25 mcg PRN Q5MIN PRN IV MILD PAIN 1-3; Start 01/10/19 at 11:00; Stop 01/11/19 at 10:59 Fentanyl Citrate (Fentanyl 2ml Vial) 50 mcg PRN Q5MIN PRN IV MODERATE TO SEVERE PAIN; Start 01/10/19 at 11:00; Stop 01/11/19 at 10:59 Morphine Sulfate (Morphine Sulfate) 1 mg PRN Q10MIN PRN IV SEVERE PAIN 7-10; Start 01/10/19 at 11:00; Stop 01/11/19 at 10:59 Ringer's Solution 1,000 ml @ 30 mls/hr Q24H IV ; Start 01/10/19 at 10:46; Stop 01/10/19 at 22:45 Hydromorphone HCl (Dilaudid) 0.5 mg PRN Q10MIN PRN IV SEV PAIN, Second choice; Start 01/10/19 at 11:00; Stop 01/11/19 at 10:59 Prochlorperazine Edisylate (Compazine) 5 mg PACU PRN PRN IV NAUSEA, MRX1; Start 01/10/19 at 11:00; Stop 01/11/19 at 10:59 Propofol 20 ml @ As Directed STK-MED ONCE IV ; Start 01/10/19 at 11:05; Stop 01/10/19 at 11:05; Status DC Active Scripts Active Proair Hfa Inhaler (Albuterol Sulfate) 8.5 Gm Hfa.aer.ad 1 Puff INH PRN Q6HRS PRN 30 Days Lidocaine PATCH (Lidocaine) 1 Each Adh..patch 1 Patch TD DAILY Vitamin D2 (Ergocalciferol (Vitamin D2)) 50,000 Unit Capsule 50,000 Unit PO WEEKLY Vitamin B-12 (Cyanocobalamin (Vitamin B-12)) 1,000 Mcg Tablet 1,000 Mcg PO DAILY Guaifenesin 100 Mg/5 Ml Liquid 200 Mg PO PRN Q4HRS PRN 7 Days Doxycycline Hyclate 100 Mg Tablet 100 Mg PO BID Reported [lactob] Bupropion Xl (Bupropion Hcl) 150 Mg Tab.er.24h 75 Mg PO HS Protonix (Pantoprazole Sodium) 40 Mg Tablet. 40 Mg PO HS Citalopram Hbr (Citalopram Hydrobromide) 20 Mg Tablet 20 Mg PO HS Allopurinol 100 Mg Tablet 100 Mg PO HS Atorvastatin Calcium 20 Mg Tablet 20 Mg PO HS Aspir-Low (Aspirin) 81 Mg Tablet. 81 Mg PO HS Vitals/I & O Vital Sign - Last 24 Hours 01/09/19 01/09/19 01/09/19 01/10/19 15:00 19:00 20:48 03:00 Temp 97.9 98.1 97.9 97.9 98.1 97.9 Pulse 98 103 95 Resp 18 18 18 B/P (MAP) 109/62 (78) 108/65 (79) 114/64 (81) Pulse Ox 94 91 92 O2 Delivery Room Air Room Air Room Air Room Air 01/10/19 01/10/19 01/10/19 01/10/19 07:00 08:00 10:23 10:24 Temp 97.5 97.9 97.5 97.9 Pulse 94 98 Resp 18 20 B/P (MAP) 111/71 (84) Pulse Ox 90 92 O2 Delivery Room Air Room Air Room Air 01/10/19 01/10/19 01/10/19 01/10/19 11:23 11:35 11:50 12:05 Temp 97.9 97.9 Pulse 98 97 89 96 Resp 16 20 20 20 B/P (MAP) 114/64 90/57 106/63 114/66 Pulse Ox 94 96 97 93 O2 Delivery Simple Mask Simple Mask Simple Mask Room Air O2 Flow Rate 5 2 2 01/10/19 12:42 Temp 97.6 97.6 Pulse 92 Resp 24 B/P (MAP) 113/71 (85) Pulse Ox 94 O2 Delivery Simple Mask O2 Flow Rate 2.0 Intake and Output 01/09/19 01/09/19 01/10/19 15:00 23:00 07:00 Intake Total 600 ml 300 ml 0 ml Balance 600 ml 300 ml 0 ml CONSTANTINO PHELAN MD Jan 10, 2019 13:18
[2019-01-10] MEDS: LACTOBACILLUS RHAMNOSUS GG 1 CAPSULE. PO SCH ×2 (13:38→20:54)
[2019-01-10] MEDS: CYANOCOBALAMIN (VITAMIN B-12) 1,000 MCG TABLET. PO SCH (13:39)
--- NOTE | 2019-01-10 14:06 | PDOC4 ---
PROCEDURE Procedure BRONCH NO ENDO LESION BAL RML/LLL COMPLETED IRA GRIER MD Jan 10, 2019 14:06
[2019-01-10 15:00] VITALS: BP 105/63
[2019-01-10] MEDS: methylPREDNISolone SOD SUCC PF 125 MG/2 ML VIAL. IV SCH ×2 (15:28→20:54)
--- NOTE | 2019-01-10 15:48 | NUR ---
SW following pt. PT/OT pending. SW will await for PT/OT recommendation to assess skilled needs.
[2019-01-10] MEDS: NON FORMULARY ITEM PO SCH (16:53)
[2019-01-10] MEDS ORDERED: ACETAMINOPHEN 325 MG TABLET. PO PRN (17:00)
[2019-01-10 19:00] VITALS: BP 122/68
[2019-01-10] MEDS: ASPIRIN ENTERIC COATED 81 MG TABLET.DR. PO SCH (20:54)
[2019-01-10] MEDS: traZODone 100 MG TABLET. PO SCH (20:54)
[2019-01-10] MEDS: PANTOPRAZOLE 40 MG TABLET.DR. PO SCH (20:54)
[2019-01-10] MEDS: CITALOPRAM 20 MG TABLET. PO SCH (20:54)
[2019-01-10] MEDS: ALLOPURINOL 100 MG TABLET. PO SCH (20:54)
[2019-01-10] MEDS: ATORVASTATIN CALCIUM 20 MG TABLET PO SCH (20:54)
[2019-01-10] MEDS: PATCH REMOVAL. MC SCH (21:00)
--- NOTE | 2019-01-10 21:47 | OP ---
DATE OF SURGERY: 01/10/2019 ATTENDING PHYSICIAN: Alejandra Carter MD PROCEDURE: Bronchoscopy. INDICATION: The patient presented with persistent abnormal CT chest, weight loss, undergoing diagnostic bronchoscopy. CT revealing evidence of bilateral infiltrates, possible inflammatory in nature versus infectious etiology. I reviewed the risks, benefits and alternatives to the bronchoscopy, the patient accepted. DESCRIPTION OF PROCEDURE: A timeout was performed prior to sedation. Vital signs and O2 saturation were maintained within normal limits throughout the procedure. The bronchoscope was passed through the right naris. The vocal cords were anesthetized with a total of 5 mL of 4% lidocaine. The bronchoscope was then passed through the vocal cords into the proximal trachea, which was normal. The distal trachea was likewise normal. The right and left segments and subsegments were all visualized. There were no endobronchial lesions. There was no mucus plugging. There was no purulent material. The scope was wedged into the right lower lobe and a bronchoalveolar lavage was performed. The scope was then advanced into the left lower lobe and a bronchoalveolar lavage was likewise performed. FINDINGS: 1. Normal vocal cords. 2. No endobronchial lesions. 3. BAL performed of the right lower lobe and left lower lobe. The patient tolerated procedure well with no immediate complications. We will await the BAL results. IRA GRIER MD DR: JUNIOR/brandan JOB#: [id number] / [id number]
[2019-01-10 23:00] VITALS: BP 115/65
[2019-01-11 03:00] VITALS: BP 122/69
[2019-01-11] MEDS: methylPREDNISolone SOD SUCC PF 125 MG/2 ML VIAL. IV SCH ×3 (05:01→22:13)
[2019-01-11 07:00] VITALS: BP 114/67
[2019-01-11] MEDS: LACTOBACILLUS RHAMNOSUS GG 1 CAPSULE. PO SCH ×2 (08:25→20:59)
[2019-01-11] MEDS: CYANOCOBALAMIN (VITAMIN B-12) 1,000 MCG TABLET. PO SCH (08:25)
[2019-01-11] MEDS: LIDOCAINE (700MG/PATCH) PATCH. TD SCH (08:27)
[2019-01-11] MEDS ORDERED: PRED-220 PO (10:17)
[2019-01-11] MEDS ORDERED: LEVO500T59 PO (10:17)
[2019-01-11] MEDS ORDERED: TRAZ-86 PO (10:17)
--- NOTE | 2019-01-11 10:20 | PDOC ---
PROGRESS NOTES Chief Complaint Chief Complaint try to DC to skilled weakness and debility BOOP, pneumonia sirs, sepsis on admit 1 month ago, traumatic left-sided small pneumothorax. prior bilateral parenchymal infiltrates weight loss History of Present Illness History of Present Illness dr. marrero s/p bronch and cx yesterday on abx and steroids Vitals Vitals Vital Signs Date Time Temp Pulse Resp B/P (MAP) Pulse Ox O2 Delivery O2 Flow Rate FiO2 01/11/19 08:00 Room Air 01/11/19 07:00 97.5 90 16 114/67 (83) 94 97.5 01/10/19 20:00 2.0 Physical Exam General: Alert, Oriented X3, Cooperative, No acute distress Lungs: Clear Abdomen: Normal bowel sounds, Soft Extremities: No cyanosis, No edema, Normal pulses Skin: No significant lesion Assessment and Plan Assessmemt and Plan Problems Medical Problems: (1) CAD (coronary artery disease) Status: Chronic (2) HTN (hypertension) Status: Chronic (3) Weakness Status: Acute Comment Review of Relevant I have reviewed the following items dawn (where applicable) has been applied. Labs Microbiology 01/10/19 - Final, Complete Medications Current Medications Allopurinol (Zyloprim) 100 mg HS PO Last administered on 01/10/19at 20:59; Start 01/08/19 at 21:00 Aspirin (Ecotrin) 81 mg HS PO Last administered on 01/10/19 20:59; Start 01/08/19 at 21:00 Atorvastatin Calcium (Lipitor) 20 mg HS PO Last administered on 01/10/19 20:59; Start 01/08/19 at 21:00 Citalopram Hydrobromide (CeleXA) 20 mg HS PO Last administered on 01/10/19at 20:59; Start 01/08/19 at 21:00 Cyanocobalamin (Vitamin B-12) 1,000 mcg DAILY PO Last administered on 01/11/19at 08:27; Start 01/09/19 at 09:00 Guaifenesin (Robitussin) 200 mg PRN Q4HRS PRN PO COUGH; Start 01/08/19 at 19:00 Lidocaine (Lidoderm) 1 patch DAILY TD ; Start 01/09/19 at 09:00 Pantoprazole Sodium (Protonix) 40 mg HS PO Last administered on 01/10/19at 20:59; Start 01/08/19 at 21:00 Miscellaneous (Lidoderm Patch Removal) 1 ea QHS MC Last administered on 01/08/19 21:03; Start 01/08/19 at 21:00 Zolpidem Tartrate (Ambien) 5 mg HS PO Last administered on 01/09/19 20:08; Start 01/08/19 at 21:00; Stop 01/10/19 at 13:18; Status DC Lorazepam (Ativan Inj) 2 mg PRN Q1HR PRN IV For CIWA 8-14; Start 01/08/19 at 19:00 Lorazepam (Ativan Inj) 4 mg PRN Q1HR PRN IV For CIWA 15 or greater; Start 01/08/19 at 19:00 Lorazepam (Ativan) 0.5 mg PRN Q8HRS PRN PO ANXIETY / AGITATION Last administered on 01/09/19 22:19; Start 01/08/19 at 19:00 Non-Formulary Medication 1 ea DAILYWSUP PO ; Start 01/09/19 at 17:00; Stop 01/08/19 at 20:03; Status DC Levofloxacin/ Dextrose 100 ml @ 100 mls/hr Q24H IV Last administered on 01/10/19 20:59; Start 01/08/19 at 19:30 Non-Formulary Medication 1 ea DAILYWSUP PO Last administered on 01/09/19at 17:03; Start 01/09/19 at 17:00 Lactobacillus Rhamnosus (Culturelle) 1 cap BID PO Last administered on 01/11/19at 08:27; Start 01/09/19 at 21:00 Ringer's Solution 1,000 ml @ 75 mls/hr 1X ONCE IV Last administered on 01/10/19 10:26; Start 01/10/19 at 06:30; Stop 01/10/19 at 19:49; Status DC Albuterol Sulfate (Ventolin Neb Soln) 2.5 mg PRN 1X PRN NEB SHORTNESS OF BREATH Last administered on 01/10/19at 10:34; Start 01/10/19 at 09:00; Stop 01/11/19 at 08:59; Status DC Lidocaine HCl (Lidocaine 2% Viscous) 100 ml PRN 1X PRN MM MOUTH PAIN Last administered on 01/10/19at 10:33; Start 01/10/19 at 09:00; Stop 01/11/19 at 08:59; Status DC Lidocaine HCl (Lidocaine 1% 20ml Vial) 20 ml PRN 1X PRN INJ SEE COMMENTS Last administered on 01/10/19at 10:35; Start 01/10/19 at 09:00; Stop 01/11/19 at 08:59; Status DC Epinephrine HCl (Adrenalin) 1 mg PRN 1X PRN INJ SEE COMMENTS; Start 01/10/19 at 09:00; Stop 01/11/19 at 08:59; Status DC Lidocaine HCl 50 ml PRN 1X PRN MM SEE COMMENTS Last administered on 01/10/19at 10:34; Start 01/10/19 at 09:00; Stop 01/11/19 at 08:59; Status DC Epinephrine HCl (Adrenalin) 1 mg STK-MED ONCE .ROUTE ; Start 01/10/19 at 09:33; Stop 01/10/19 at 09:34; Status DC Lidocaine HCl (Lidocaine 1% 20ml Vial) 20 ml STK-MED ONCE .ROUTE ; Start 01/10/19 at 09:33; Stop 01/10/19 at 09:34; Status DC Lidocaine HCl (Lidocaine 2% Viscous) 100 ml STK-MED ONCE .ROUTE ; Start 01/10/19 at 09:33; Stop 01/10/19 at 09:34; Status DC Lidocaine HCl 50 ml STK-MED ONCE .ROUTE ; Start 01/10/19 at 09:33; Stop 01/10/19 at 09:34; Status DC Fentanyl Citrate (Fentanyl 2ml Vial) 25 mcg PRN Q5MIN PRN IV MILD PAIN 1-3; Start 01/10/19 at 11:00; Stop 01/10/19 at 13:18; Status DC Fentanyl Citrate (Fentanyl 2ml Vial) 50 mcg PRN Q5MIN PRN IV MODERATE TO SEVERE PAIN; Start 01/10/19 at 11:00; Stop 01/10/19 at 13:18; Status DC Morphine Sulfate (Morphine Sulfate) 1 mg PRN Q10MIN PRN IV SEVERE PAIN 7-10; Start 01/10/19 at 11:00; Stop 01/10/19 at 13:18; Status DC Ringer's Solution 1,000 ml @ 30 mls/hr Q24H IV ; Start 01/10/19 at 10:46; Stop 01/10/19 at 13:18; Status DC Hydromorphone HCl (Dilaudid) 0.5 mg PRN Q10MIN PRN IV SEV PAIN, Second choice; Start 01/10/19 at 11:00; Stop 01/10/19 at 13:18; Status DC Prochlorperazine Edisylate (Compazine) 5 mg PACU PRN PRN IV NAUSEA, MRX1; Sta rt 01/10/19 at 11:00; Stop 01/10/19 at 13:18; Status DC Propofol 20 ml @ As Directed STK-MED ONCE IV ; Start 01/10/19 at 11:05; Stop 01/10/19 at 11:05; Status DC Trazodone HCl (Desyrel) 100 mg QHS PO Last administered on 01/10/19at 20:59; Start 01/10/19 at 21:00 Methylprednisolone Sodium Succinate (SOLU-Medrol 125MG VIAL) 125 mg Q8HRS IV Last administered on 01/11/19at 05:02; Start 01/10/19 at 14:30 Acetaminophen (Tylenol) 650 mg PRN Q6HRS PRN PO PAIN Last administered on 01/10/19at 17:08; Start 01/10/19 at 17:00 Active Scripts Active Levaquin (Levofloxacin) 500 Mg Tablet 1 Tab PO DAILY Prednisone (Prednisone) 10 Mg Tablet 10 Mg PO UD Take 4 tablets by mouth daily for 6 days, then take 3 tablets by mouth daily for 2 days, then take 2 tablets by mouth daily for 2 days, then take 1 tablets by mouth daily for 2 days, then stop. Trazodone Hcl 100 Mg Tablet 100 Mg PO QHS Proair Hfa Inhaler (Albuterol Sulfate) 8.5 Gm Hfa.aer.ad 1 Puff INH PRN Q6HRS PRN 30 Days Lidocaine PATCH (Lidocaine) 1 Each Adh..patch 1 Patch TD DAILY Vitamin D2 (Ergocalciferol (Vitamin D2)) 50,000 Unit Capsule 50,000 Unit PO WEEKLY Vitamin B-12 (Cyanocobalamin (Vitamin B-12)) 1,000 Mcg Tablet 1,000 Mcg PO DAILY Guaifenesin 100 Mg/5 Ml Liquid 200 Mg PO PRN Q4HRS PRN 7 Days Doxycycline Hyclate 100 Mg Tablet 100 Mg PO BID Reported [lactob] Bupropion Xl (Bupropion Hcl) 150 Mg Tab.er.24h 75 Mg PO HS Protonix (Pantoprazole Sodium) 40 Mg Tablet.dr 40 Mg PO HS Citalopram Hbr (Citalopram Hydrobromide) 20 Mg Tablet 20 Mg PO HS Allopurinol 100 Mg Tablet 100 Mg PO HS Atorvastatin Calcium 20 Mg Tablet 20 Mg PO HS Aspir-Low (Aspirin) 81 Mg Tablet.dr 81 Mg PO HS Vitals/I & O Vital Sign - Last 24 Hours 01/10/19 01/10/19 01/10/19 01/10/19 10:23 10:24 11:23 11:35 Temp 97.9 97.9 97.9 97.9 Pulse 98 98 97 Resp 20 16 20 B/P (MAP) 114/64 90/57 Pulse Ox 92 94 96 O2 Delivery Room Air Simple Mask Simple Mask O2 Flow Rate 5 2 01/10/19 01/10/19 01/10/19 01/10/19 11:50 12:05 12:42 15:00 Temp 97.6 98.3 97.6 98.3 Pulse 89 96 92 96 Resp 20 20 24 18 B/P (MAP) 106/63 114/66 113/71 (85) 105/63 (77) Pulse Ox 97 93 94 98 O2 Delivery Simple Mask Room Air Simple Mask Room Air O2 Flow Rate 2 2.0 01/10/19 01/10/19 01/10/19 01/11/19 19:00 20:00 23:00 03:00 Temp 98.1 98.0 97.9 98.1 98.0 97.9 Pulse 89 87 88 Resp 18 18 18 B/P (MAP) 122/68 (86) 115/65 (82) 122/69 (86) Pulse Ox 92 94 97 O2 Delivery Room Air Room Air Room Air Room Air O2 Flow Rate 2.0 01/11/19 01/11/19 07:00 08:00 Temp 97.5 97.5 Pulse 90 Resp 16 B/P (MAP) 114/67 (83) Pulse Ox 94 O2 Delivery Room Air Room Air Intake and Output 01/10/19 01/10/19 01/11/19 15:00 23:00 07:00 Intake Total 220 ml 0 ml Balance 220 ml 0 ml CONSTANTINO PHELAN MD Jan 11, 2019 10:20
--- NOTE | 2019-01-11 10:22 | SNU/HH DC ---
DISCHARGE ORDERS DISCHARGE INFORMATION: DISCHARGE DATE: Jan 11, 2019 FINAL DIAGNOSIS Problems Medical Problems: (1) CAD (coronary artery disease) Status: Chronic (2) HTN (hypertension) Status: Chronic (3) Weakness Status: Acute CONDITION ON DISCHARGE: Stable CODE STATUS: Code Status: Full LONGTERM: SNF STAY <30 DAYS: Yes POST DISCHARGE ORDERS: ACTIVITY ORDERS: Activity as tolerated WEIGHT BEARING STATUS: As tolerated DIET AFTER DISCHARGE: Regular WOUND/INCISION CARE: No wound care needed CHECKS AFTER DISCHARGE: CHECKS AFTER DISCHARGE: Check blood press - daily, Check your Temp as needed, Weigh Yourself Daily FOLLOW-UP: PHYSICIAN FOLLOW-UP: Pulmonary, Dr. Gross or elida one week TREATMENT/EQUIPMENT ORDERS: ADAPTIVE EQUIPMENT NEEDED: Cane Physical Therapy For: Evalulation/Treatment Occupational Therapy For: Evaluation/Treatment DISCHARGE MEDICATIONS: Home Meds Active Scripts Levofloxacin (LEVAQUIN) 500 Mg Tablet, 1 TAB PO DAILY for bronchitis, #10 TAB Prov:CONSTANTINO PHELAN MD 01/11/19 Prednisone (PREDNISONE ) 10 Mg Tablet, 10 MG PO UD for bronchitis, #36 TAB 0 Refills Take 4 tablets by mouth daily for 6 days, then take 3 tablets by mouth daily for 2 days, then take 2 tablets by mouth daily for 2 days, then take 1 tablets by mouth daily for 2 days, then stop. Prov:CONSTANTINO PHELAN MD 01/11/19 Trazodone Hcl (TRAZODONE HCL) 100 Mg Tablet, 100 MG PO QHS for sleep, #30 TAB 1 Refill Prov:CONSTANTINO PHELAN MD 01/11/19 Albuterol Sulfate (PROAIR HFA INHALER) 8.5 Gm Hfa.aer.ad, 1 PUFF INH PRN Q6HRS PRN for SHORTNESS OF BREATH for 30 Days, INHALER 0 Refills Prov:DENITA KASPER MD 12/12/18 Lidocaine (Lidocaine PATCH ) 1 Each Adh..patch, 1 PATCH TD DAILY for pain, #14 PATCH Prov:DENITA KASPER MD 12/12/18 Ergocalciferol (Vitamin D2) (VITAMIN D2) 50,000 Unit Capsule, 03921 UNIT PO WEEKLY for vit d def, #12 CAP Prov:DENITA KASPER MD 12/12/18 Cyanocobalamin (Vitamin B-12) (VITAMIN B-12) 1,000 Mcg Tablet, 1000 MCG PO DAILY for mvi, #30 TAB Prov:DENITA KASPER MD 12/12/18 Guaifenesin (GUAIFENESIN) 100 Mg/5 Ml Liquid, 200 MG PO PRN Q4HRS PRN for COUGH for 7 Days, LIQUID Prov:DENITA KASPER MD 12/12/18 Doxycycline Hyclate (DOXYCYCLINE HYCLATE) 100 Mg Tablet, 100 MG PO BID for infiltrates, #14 TAB Prov:DENITA KASPER MD 12/12/18 Reported Medications [lactob] No Conflict Check 01/08/19 Bupropion Hcl (BUPROPION XL) 150 Mg Tab.er.24h, 75 MG PO HS for DEPRESSION, TAB.SR 12/06/18 Pantoprazole Sodium (PROTONIX ) 40 Mg Tablet.dr, 40 MG PO HS for GERD, TAB 12/06/18 Citalopram Hydrobromide (CITALOPRAM HBR) 20 Mg Tablet, 20 MG PO HS for DEPRESSION, TAB 12/06/18 Allopurinol (ALLOPURINOL) 100 Mg Tablet, 100 MG PO HS for GOUT, TAB 12/06/18 Atorvastatin Calcium (ATORVASTATIN CALCIUM) 20 Mg Tablet, 20 MG PO HS for FOR CHOLESTEROL, #30 TAB 0 Refills 12/06/18 Aspirin (ASPIR-LOW) 81 Mg Tablet., 81 MG PO HS for HEART HEALTH, TAB.SR 12/06/18 CONSTANTINO PHELAN MD Jan 11, 2019 10:22
[2019-01-11 11:00] VITALS: BP 108/65
--- NOTE | 2019-01-11 11:36 | PDOC ---
PULMONARY PROGRESS NOTES Subjective PT ABOUT THE SAME NO INCREASE SOA Vitals Vital Signs Date Time Temp Pulse Resp B/P (MAP) Pulse Ox O2 Delivery O2 Flow Rate FiO2 01/11/19 11:00 98.3 83 14 108/65 (79) 93 Room Air 98.3 01/10/19 20:00 2.0 ROS: No Nausea, No Abdominal Pain, No Increase Cough General: Alert, No acute distress Lungs: Clear Cardiovascular: S1, S2 Abdomen: Soft, Non-tender Neuro Exam: Alert Extremities: No Edema Medications Active Scripts Medications Dose Route/Sig Max Daily Dose Days Date Category [lactob] 01/08/19 Reported Proair Hfa Inhaler (Albuterol Sulfate) 8.5 Gm Hfa.aer.ad 1 Puff INH PRN Q6HRS PRN 30 12/12/18 Rx Lidocaine PATCH (Lidocaine) 1 Each Adh..patch 1 Patch TD DAILY 12/12/18 Rx Vitamin D2 (Ergocalciferol (Vitamin D2)) 50,000 Unit Capsule 50,000 Unit PO WEEKLY 12/12/18 Rx Vitamin B-12 (Cyanocobalamin (Vitamin B-12)) 1,000 Mcg Tablet 1,000 Mcg PO DAILY 12/12/18 Rx Guaifenesin 100 Mg/5 Ml Liquid 200 Mg PO PRN Q4HRS PRN 7 12/12/18 Rx Doxycycline Hyclate 100 Mg Tablet 100 Mg PO BID 12/12/18 Rx Bupropion Xl (Bupropion Hcl) 150 Mg Tab.er.24h 75 Mg PO HS 12/06/18 Reported Protonix (Pantoprazole Sodium) 40 Mg Tablet.dr 40 Mg PO HS 12/06/18 Reported Citalopram Hbr (Citalopram Hydrobromide) 20 Mg Tablet 20 Mg PO HS 12/06/18 Reported Allopurinol 100 Mg Tablet 100 Mg PO HS 12/06/18 Reported Atorvastatin Calcium 20 Mg Tablet 20 Mg PO HS 12/06/18 Reported Aspir-Low (Aspirin) 81 Mg Tablet.dr 81 Mg PO HS 12/06/18 Reported Impression . IMPRESSION: 1. Persistent abnormal CT chest revealing multifocal bilateral peripheral subpleural consolidation. 2. Persistent small right-sided hydrothorax. 3. Mediastinal adenopathy. 4. Severe weight loss. 5. Progressive dyspnea with exertion. 6. Hypertension. 7. Coronary artery disease with previous stent placement. 8. Severe protein malnutrition, present upon admission. Plan . SO FAR BAL NEGATIVE WILL D/C IN AM ON PRED AND ANTIBX 6 M WALK CONTINUE ANTIBX STEROIDS IRA GRIER MD Jan 11, 2019 11:36
--- NOTE | 2019-01-11 11:36 | NUR ---
SW following pt. Pt has dc orders to SNU. OT recommends acute rehab. PT notes pending. Discussed with Pt and pt's in room. They are interested in [facility]. SW will fax referral once PT notes are in EMR. Discussed with OT and RN. Addendum: 01/11/19 at 1322 by TETE GIBBS Referral faxed to [facility] and pt acceptance/admission pending. Mallory from [facility] reported they do not have a bed today but are expecting discharges tomorrow. Will continue to follow.
[2019-01-11 15:00] VITALS: BP 101/62
[2019-01-11 19:00] VITALS: BP 116/69
[2019-01-11] MEDS: NON FORMULARY ITEM PO SCH (19:03)
[2019-01-11] MEDS: PATCH REMOVAL. MC SCH (20:59)
[2019-01-11] MEDS: ASPIRIN ENTERIC COATED 81 MG TABLET.DR. PO SCH (20:59)
[2019-01-11] MEDS: traZODone 100 MG TABLET. PO SCH (20:59)
[2019-01-11] MEDS: ATORVASTATIN CALCIUM 20 MG TABLET PO SCH (20:59)
[2019-01-11] MEDS: PANTOPRAZOLE 40 MG TABLET.DR. PO SCH (20:59)
[2019-01-11] MEDS: CITALOPRAM 20 MG TABLET. PO SCH (20:59)
[2019-01-11] MEDS: ALLOPURINOL 100 MG TABLET. PO SCH (20:59)
[2019-01-11 23:00] VITALS: BP 93/51
[2019-01-12 03:00] VITALS: BP 108/57
[2019-01-12] MEDS: methylPREDNISolone SOD SUCC PF 125 MG/2 ML VIAL. IV SCH (06:17)
[2019-01-12 07:00] VITALS: BP 128/76
--- NOTE | 2019-01-12 08:54 | PDOC ---
PULMONARY PROGRESS NOTES Subjective PT ABOUT THE SAME NO INCREASE SOA Vitals Vital Signs Date Time Temp Pulse Resp B/P (MAP) Pulse Ox O2 Delivery O2 Flow Rate FiO2 01/12/19 07:00 98.0 81 14 128/76 (93) 96 Room Air 98.0 ROS: No Nausea, No Abdominal Pain, No Increase Cough General: Alert, No acute distress Lungs: Clear Cardiovascular: S1, S2 Abdomen: Soft, Non-tender Neuro Exam: Alert Extremities: No Edema Labs Laboratory Tests Test 01/10/19 11:20 01/10/19 11:25 Legionella species (PCR) Not detected (Not Detected) Not detected (Not Detected) Legionella pneumophila DNA (PCR) Not detected (Not Detected) Not detected (Not Detected) Medications Active Scripts Medications Dose Route/Sig Max Daily Dose Days Date Category [lactob] 01/08/19 Reported Proair Hfa Inhaler (Albuterol Sulfate) 8.5 Gm Hfa.aer.ad 1 Puff INH PRN Q6HRS PRN 30 12/12/18 Rx Lidocaine PATCH (Lidocaine) 1 Each Adh..patch 1 Patch TD DAILY 12/12/18 Rx Vitamin D2 (Ergocalciferol (Vitamin D2)) 50,000 Unit Capsule 50,000 Unit PO WEEKLY 12/12/18 Rx Vitamin B-12 (Cyanocobalamin (Vitamin B-12)) 1,000 Mcg Tablet 1,000 Mcg PO DAILY 12/12/18 Rx Guaifenesin 100 Mg/5 Ml Liquid 200 Mg PO PRN Q4HRS PRN 7 12/12/18 Rx Doxycycline Hyclate 100 Mg Tablet 100 Mg PO BID 12/12/18 Rx Bupropion Xl (Bupropion Hcl) 150 Mg Tab.er.24h 75 Mg PO HS 12/06/18 Reported Protonix (Pantoprazole Sodium) 40 Mg Tablet.dr 40 Mg PO HS 12/06/18 Reported Citalopram Hbr (Citalopram Hydrobromide) 20 Mg Tablet 20 Mg PO HS 12/06/18 Reported Allopurinol 100 Mg Tablet 100 Mg PO HS 12/06/18 Reported Atorvastatin Calcium 20 Mg Tablet 20 Mg PO HS 12/06/18 Reported Aspir-Low (Aspirin) 81 Mg Tablet.dr 81 Mg PO HS 12/06/18 Reported Impression . IMPRESSION: 1. Persistent abnormal CT chest revealing multifocal bilateral peripheral subpleural consolidation. 2. Persistent small right-sided hydrothorax. 3. Mediastinal adenopathy. 4. Severe weight loss. 5. Progressive dyspnea with exertion. 6. Hypertension. 7. Coronary artery disease with previous stent placement. 8. Severe protein malnutrition, present upon admission. Plan . SO FAR BAL NEGATIVE WILL D/C IN AM ON PRED AND ANTIBX 6 M WALK CONTINUE ANTIBX STEROIDS IRA GRIER MD Jan 12, 2019 08:54
[2019-01-12] MEDS: LIDOCAINE (700MG/PATCH) PATCH. TD SCH (09:00)
[2019-01-12] MEDS: CYANOCOBALAMIN (VITAMIN B-12) 1,000 MCG TABLET. PO SCH (09:05)
[2019-01-12] MEDS: LACTOBACILLUS RHAMNOSUS GG 1 CAPSULE. PO SCH (09:05)
--- NOTE | 2019-01-12 09:21 | PDOC3 ---
Discharge Summary Visit Information Date of Admission: Jan 08, 2019 Date of Discharge: Jan 12, 2019 Final Diagnosis weakness and debility BOOP, pneumonia sirs, sepsis on admit 1 month ago, traumatic left-sided small pneumothorax. prior bilateral parenchymal infiltrates weight loss Problems Medical Problems: (1) CAD (coronary artery disease) Status: Chronic (2) HTN (hypertension) Status: Chronic (3) Weakness Status: Acute Brief Hospital Course Allergies Allergies Coded Allergies Type Severity Reaction Last Updated Verified lisinopril Allergy Severe THROAT CLOSING 12/06/18 Yes Vital Signs Vital Signs Date Time Temp Pulse Resp B/P (MAP) Pulse Ox O2 Delivery O2 Flow Rate FiO2 01/12/19 07:00 98.0 81 14 128/76 (93) 96 Room Air 98.0 Lab Results Laboratory Tests Test 01/10/19 11:20 01/10/19 11:25 Legionella species (PCR) Not detected (Not Detected) Not detected (Not Detected) Legionella pneumophila DNA (PCR) Not detected (Not Detected) Not detected (Not Detected) Brief Hospital Course Mr. Johns is a 83 old male, admit with worsening weakness and debility recent BOOP, pneumoniaa and effusion with small pneumo bronch, Dr. Merino, to [facility] Discharge Information Condition at Discharge: Improved Follow Up: Weeks Disposition/Orders: D/C to Another Facility Scheduled Allopurinol (Allopurinol) 100 Mg Tablet, 100 MG PO HS for GOUT, (Reported) Entered as Reported by: GLEN ANGEL on 12/06/182117 Last Action: Last Taken Edited on 01/08/192033 by FAHAD ORDOÑEZ Aspirin (Aspir-Low) 81 Mg Tablet.dr, 81 MG PO HS for HEART HEALTH, (Reported) Entered as Reported by: GLEN ANGEL on 12/06/182117 Last Taken: Unknown Dose on 01/07/192099 Last Action: Last Taken Edited on 01/08/192033 by FAHAD ORDOÑEZ Atorvastatin Calcium (Atorvastatin Calcium) 20 Mg Tablet, 20 MG PO HS for FOR CHOLESTEROL, #30 Ref 0 (Reported) Entered as Reported by: GLEN ANGEL on 12/06/182117 Last Taken: Unknown Dose on 01/07/192099 Last Action: Last Taken Edited on 01/08/192033 by FAHAD ORDOÑEZ Citalopram Hydrobromide (Citalopram Hbr) 20 Mg Tablet, 20 MG PO HS for DEPRESSION, (Reported) Entered as Reported by: GLEN ANGEL on 12/06/182117 Last Taken: Unknown Dose on 01/07/192099 Last Action: Last Taken Edited on 01/08/192033 by FAHAD ORDOÑEZ Cyanocobalamin (Vitamin B-12) (Vitamin B-12) 1,000 Mcg Tablet, 1,000 MCG PO DAILY for mvi, #30 Prescribed by: DENITA KASPER on 12/12/18846 Last Taken: Unknown Dose on 01/07/192099 Last Action: Last Taken Edited on 01/08/192033 by FAHAD ORDOÑEZ Levofloxacin (Levaquin) 500 Mg Tablet, 1 TAB PO DAILY for bronchitis, #10 Prescribed by: CONSTANTINO PHELAN on 01/11/19 1017 Lidocaine (Lidocaine PATCH ) 1 Each Adh..patch, 1 PATCH TD DAILY for pain, #14 Prescribed by: DENITA KASPER on 12/12/18846 Last Action: Last Taken Edited on 01/08/192033 by FAHAD ORDOÑEZ Pantoprazole Sodium (Protonix ) 40 Mg Tablet.dr, 40 MG PO HS for GERD, (Reported) Entered as Reported by: GLEN ANGEL on 12/06/182117 Last Taken: Unknown Dose on 01/07/192099 Last Action: Last Taken Edited on 01/08/192033 by FAHAD ORDOÑEZ Prednisone (Prednisone ) 10 Mg Tablet, 10 MG PO UD for bronchitis, #36 Ref 0 Take 4 tablets by mouth daily for 6 days, then take 3 tablets by mouth daily for 2 days, then take 2 tablets by mouth daily for 2 days, then take 1 tablets by mouth daily for 2 days, then stop. Prescribed by: CONSTANTINO PHELAN on 01/11/19 1017 Trazodone Hcl (Trazodone Hcl) 100 Mg Tablet, 100 MG PO QHS for sleep, #30 Ref 1 Prescribed by: CONSTANTINO PHELAN on 01/11/19 1017 Scheduled PRN Albuterol Sulfate (Proair Hfa Inhaler) 8.5 Gm Hfa.aer.ad, 1 PUFF INH PRN Q6HRS PRN for SHORTNESS OF BREATH for 30 Days, Ref 0 Prescribed by: DENITA KASPER on 12/12/18846 Last Taken: Unknown Dose on 01/01/19 Last Action: Last Taken Edited on 01/08/192033 by FAHAD ORDOÑEZ Guaifenesin (Guaifenesin) 100 Mg/5 Ml Liquid, 200 MG PO PRN Q4HRS PRN for COUGH for 7 Days Prescribed by: DENITA KASPER on 12/12/18846 Last Taken: Unknown Dose on 01/07/192099 Last Action: Last Taken Edited on 01/08/192033 by FAHAD ORDOÑEZ Miscellaneous Medications [lactob] , (Reported) Entered as Reported by: FAHAD ORDOÑEZ on 01/08/192033 Last Taken: Unknown Dose on 01/07/192099 Last Action: New Order on 01/08/192033 by FAHAD ORDOÑEZ Discontinued Medications Bupropion Hcl (Bupropion Xl) 150 Mg Tab.er.24h, 75 MG PO HS for DEPRESSION, (Reported) Entered as Reported by: GLEN STANLEY on 12/06/182117 Doxycycline Hyclate (Doxycycline Hyclate) 100 Mg Tablet, 100 MG PO BID for infiltrates, #14 Prescribed by: DENITA KASPER on 12/12/18846 Last Action: HELD on 01/08/191856 by CONSTANTINO PHELAN Ergocalciferol (Vitamin D2) (Vitamin D2) 50,000 Unit Capsule, 50,000 UNIT PO WEEKLY for vit d def, #12 Prescribed by: DENITA KASPER on 12/12/18846 Last Taken: Unknown Dose on 01/07/192099 Last Action: Last Taken Edited on 01/08/192033 by FAHAD ORDOÑEZ Patient Instructions Patient Instructions acute rehab > 31 min face to face discussed CONSTANTINO PHELAN MD Jan 12, 2019 09:21
--- NOTE | 2019-01-12 09:24 | PDOC ---
PROGRESS NOTES Chief Complaint Chief Complaint try to DC to skilled weakness and debility BOOP, pneumonia sirs, sepsis on admit 1 month ago, traumatic left-sided small pneumothorax. prior bilateral parenchymal infiltrates weight loss History of Present Illness History of Present Illness to acute rehab taper steroids cont abx cx pending Vitals Vitals Vital Signs Date Time Temp Pulse Resp B/P (MAP) Pulse Ox O2 Delivery O2 Flow Rate FiO2 01/12/19 07:00 98.0 81 14 128/76 (93) 96 Room Air 98.0 Physical Exam General: Alert, Oriented X3, Cooperative, No acute distress Lungs: Clear Abdomen: Normal bowel sounds, Soft Extremities: No cyanosis, No edema, Normal pulses Skin: No significant lesion Assessment and Plan Assessmemt and Plan Problems Medical Problems: (1) CAD (coronary artery disease) Status: Chronic (2) HTN (hypertension) Status: Chronic (3) Weakness Status: Acute Comment Review of Relevant I have reviewed the following items dawn (where applicable) has been applied. Labs Laboratory Tests Test 01/10/19 11:20 01/10/19 11:25 Legionella species (PCR) Not detected (Not Detected) Not detected (Not Detected) Legionella pneumophila DNA (PCR) Not detected (Not Detected) Not detected (Not Detected) Microbiology 01/10/19 AFB Specimen Processing Tissue - Final, Resulted 01/10/19 Acid Fast Bacilli Culture, Resulted Pending 01/10/19 Gram Stain - Final, Resulted 01/10/19 Fungal Culture, Resulted Pending 01/10/19 Fungal Culture Result 1, Resulted Pending Medications Current Medications Allopurinol (Zyloprim) 100 mg HS PO Last administered on 01/11/19at 21:00; Start 01/08/19 at 21:00 Aspirin (Ecotrin) 81 mg HS PO Last administered on 01/11/19 21:00; Start 01/08/19 at 21:00 Atorvastatin Calcium (Lipitor) 20 mg HS PO Last administered on 01/11/19 21:00; Start 01/08/19 at 21:00 Citalopram Hydrobromide (CeleXA) 20 mg HS PO Last administered on 01/11/19 21:00; Start 01/08/19 at 21:00 Cyanocobalamin (Vitamin B-12) 1,000 mcg DAILY PO Last administered on 01/12/19at 09:05; Start 01/09/19 at 09:00 Guaifenesin (Robitussin) 200 mg PRN Q4HRS PRN PO COUGH; Start 01/08/19 at 19:00 Lidocaine (Lidoderm) 1 patch DAILY TD ; Start 01/09/19 at 09:00 Pantoprazole Sodium (Protonix) 40 mg HS PO Last administered on 01/11/19 21:00; Start 01/08/19 at 21:00 Miscellaneous (Lidoderm Patch Removal) 1 ea QHS MC Last administered on 01/08/19at 21:03; Start 01/08/19 at 21:00 Zolpidem Tartrate (Ambien) 5 mg HS PO Last administered on 01/09/19 20:08; Start 01/08/19 at 21:00; Stop 01/10/19 at 13:18; Status DC Lorazepam (Ativan Inj) 2 mg PRN Q1HR PRN IV For CIWA 8-14; Start 01/08/19 at 19:00 Lorazepam (Ativan Inj) 4 mg PRN Q1HR PRN IV For CIWA 15 or greater; Start 01/08/19 at 19:00 Lorazepam (Ativan) 0.5 mg PRN Q8HRS PRN PO ANXIETY / AGITATION Last administered on 01/09/19at 22:19; Start 01/08/19 at 19:00 Non-Formulary Medication 1 ea DAILYWSUP PO ; Start 01/09/19 at 17:00; Stop 01/08/19 at 20:03; Status DC Levofloxacin/ Dextrose 100 ml @ 100 mls/hr Q24H IV Last administered on 01/11/19at 21:00; Start 01/08/19 at 19:30 Non-Formulary Medication 1 ea DAILYWSUP PO Last administered on 01/11/19at 19:03; Start 01/09/19 at 17:00 Lactobacillus Rhamnosus (Culturelle) 1 cap BID PO Last administered on 01/12/19at 09:05; Start 01/09/19 at 21:00 Ringer's Solution 1,000 ml @ 75 mls/hr 1X ONCE IV Last administered on 01/10/19at 10:26; Start 01/10/19 at 06:30; Stop 01/10/19 at 19:49; Status DC Albuterol Sulfate (Ventolin Neb Soln) 2.5 mg PRN 1X PRN NEB SHORTNESS OF BREATH Last administered on 01/10/19at 10:34; Start 01/10/19 at 09:00; Stop 01/11/19 at 08:59; Status DC Lidocaine HCl (Lidocaine 2% Viscous) 100 ml PRN 1X PRN MM MOUTH PAIN Last administered on 01/10/19at 10:33; Start 01/10/19 at 09:00; Stop 01/11/19 at 08:59; Status DC Lidocaine HCl (Lidocaine 1% 20ml Vial) 20 ml PRN 1X PRN INJ SEE COMMENTS Last administered on 01/10/19at 10:35; Start 01/10/19 at 09:00; Stop 01/11/19 at 08:59; Status DC Epinephrine HCl (Adrenalin) 1 mg PRN 1X PRN INJ SEE COMMENTS; Start 01/10/19 at 09:00; Stop 01/11/19 at 08:59; Status DC Lidocaine HCl 50 ml PRN 1X PRN MM SEE COMMENTS Last administered on 01/10/19at 10:34; Start 01/10/19 at 09:00; Stop 01/11/19 at 08:59; Status DC Epinephrine HCl (Adrenalin) 1 mg STK-MED ONCE .ROUTE ; Start 01/10/19 at 09:33; Stop 01/10/19 at 09:34; Status DC Lidocaine HCl (Lidocaine 1% 20ml Vial) 20 ml STK-MED ONCE .ROUTE ; Start 01/10/19 at 09:33; Stop 01/10/19 at 09:34; Status DC Lidocaine HCl (Lidocaine 2% Viscous) 100 ml STK-MED ONCE .ROUTE ; Start 01/10/19 at 09:33; Stop 01/10/19 at 09:34; Status DC Lidocaine HCl 50 ml STK-MED ONCE .ROUTE ; Start 01/10/19 at 09:33; Stop 01/10/19 at 09:34; Status DC Fentanyl Citrate (Fentanyl 2ml Vial) 25 mcg PRN Q5MIN PRN IV MILD PAIN 1-3; Start 01/10/19 at 11:00; Stop 01/10/19 at 13:18; Status DC Fentanyl Citrate (Fentanyl 2ml Vial) 50 mcg PRN Q5MIN PRN IV MODERATE TO SEVERE PAIN; Start 01/10/19 at 11:00; Stop 01/10/19 at 13:18; Status DC Morphine Sulfate (Morphine Sulfate) 1 mg PRN Q10MIN PRN IV SEVERE PAIN 7-10; Start 01/10/19 at 11:00; Stop 01/10/19 at 13:18; Status DC Ringer's Solution 1,000 ml @ 30 mls/hr Q24H IV ; Start 01/10/19 at 10:46; Stop 01/10/19 at 13:18; Status DC Hydromorphone HCl (Dilaudid) 0.5 mg PRN Q10MIN PRN IV SEV PAIN, Second choice; Start 01/10/19 at 11:00; Stop 01/10/19 at 13:18; Status DC Prochlorperazine Edisylate (Compazine) 5 mg PACU PRN PRN IV NAUSEA, MRX1; Start 01/10/19 at 11:00; Stop 01/10/19 at 13:18; Status DC Propofol 20 ml @ As Directed STK-MED ONCE IV ; Start 01/10/19 at 11:05; Stop 01/10/19 at 11:05; Status DC Trazodone HCl (Desyrel) 100 mg QHS PO Last administered on 01/11/19at 21:00; Start 01/10/19 at 21:00 Methylprednisolone Sodium Succinate (SOLU-Medrol 125MG VIAL) 125 mg Q8HRS IV Last administered on 01/12/19at 06:17; Start 01/10/19 at 14:30 Acetaminophen (Tylenol) 650 mg PRN Q6HRS PRN PO PAIN Last administered on 01/10/19at 17:08; Start 01/10/19 at 17:00 Active Scripts Active Levaquin (Levofloxacin) 500 Mg Tablet 1 Tab PO DAILY Prednisone (Prednisone) 10 Mg Tablet 10 Mg PO UD Take 4 tablets by mouth daily for 6 days, then take 3 tablets by mouth daily for 2 days, then take 2 tablets by mouth daily for 2 days, then take 1 tablets by mouth daily for 2 days, then stop. Trazodone Hcl 100 Mg Tablet 100 Mg PO QHS Proair Hfa Inhaler (Albuterol Sulfate) 8.5 Gm Hfa.aer.ad 1 Puff INH PRN Q6HRS PRN 30 Days Lidocaine PATCH (Lidocaine) 1 Each Adh..patch 1 Patch TD DAILY Vitamin B-12 (Cyanocobalamin (Vitamin B-12)) 1,000 Mcg Tablet 1,000 Mcg PO DAILY Guaifenesin 100 Mg/5 Ml Liquid 200 Mg PO PRN Q4HRS PRN 7 Days Reported [lactob] Protonix (Pantoprazole Sodium) 40 Mg Tablet. 40 Mg PO HS Citalopram Hbr (Citalopram Hydrobromide) 20 Mg Tablet 20 Mg PO HS Allopurinol 100 Mg Tablet 100 Mg PO HS Atorvastatin Calcium 20 Mg Tablet 20 Mg PO HS Aspir-Low (Aspirin) 81 Mg Tablet. 81 Mg PO HS Vitals/I & O Vital Sign - Last 24 Hours 01/11/19 01/11/19 01/11/19 01/11/19 11:00 15:00 19:00 20:15 Temp 98.3 97.8 97.5 98.3 97.8 97.5 Pulse 83 88 80 Resp 14 16 22 B/P (MAP) 108/65 (79) 101/62 (75) 116/69 (85) Pulse Ox 93 93 96 O2 Delivery Room Air Room Air Room Air Room Air 01/11/19 01/12/19 01/12/19 23:00 03:00 07:00 Temp 97.6 97.5 98.0 97.6 97.5 98.0 Pulse 82 79 81 Resp 20 20 14 B/P (MAP) 93/51 (65) 108/57 (74) 128/76 (93) Pulse Ox 92 93 96 O2 Delivery Room Air Room Air Room Air Intake and Output 01/11/19 01/11/19 01/12/19 14:59 22:59 06:59 Intake Total 480 ml 650 ml 200 ml Balance 480 ml 650 ml 200 ml CONSTANTINO PHELAN MD Jan 12, 2019 09:23
--- NOTE | 2019-01-12 10:40 | NUR ---
SW following pt. Pt is accepted at [facility] and will transport via facility arranged w/c van at 1230. Pt, pt's and RN notified.
[2019-01-12 11:00] VITALS: BP 106/64
--- NOTE | 2019-01-12 12:34 | NUR ---
Discharge Note: SUSANA BUSH Discharge instructions and discharge home medications reviewed with Patient and a copy given. All questions have been answered and understanding verbalized. The following instructions and handouts were given: pneumothorax Discontinued lines and drains: Peripheral IV intact. Patient discharged to [facility] transport by [employer] [employer], at bedside
[2019-01-13] MEDS ORDERED: predniSONE 10 MG TABLET PO SCH (09:00)
== END 2019-01-12 12:35 | DRG 871 ==
LOC: 5 NORTH 16:03
PROVIDERS: ADMIT Internal Medicine; ATTEND Internal Medicine
PROC: 0B9F8ZX Drainage of Right Lower Lung Lobe, Via Natural or Artificial Opening Endoscopic, Diagnostic (ICD-10-PCS; 2019-01-10)
PROC: 0B9J8ZX Drainage of Left Lower Lung Lobe, Via Natural or Artificial Opening Endoscopic, Diagnostic (ICD-10-PCS; principal; 2019-01-10 13:30)
DX: A41.9 Sepsis, unspecified organism (principal); E43 Unspecified severe protein-calorie malnutrition; J94.8 Other specified pleural conditions; Z68.1 Body mass index [BMI] 19.9 or less, adult; E78.5 Hyperlipidemia, unspecified; J84.89 Other specified interstitial pulmonary diseases; M10.9 Gout, unspecified; I10 Essential (primary) hypertension; F32.9 Major depressive disorder, single episode, unspecified; I25.10 Atherosclerotic heart disease of native coronary artery without angina pectoris; K21.9 Gastro-esophageal reflux disease without esophagitis; Z82.3 Family history of stroke; Z82.49 Family history of ischemic heart disease and other diseases of the circulatory system; Z95.5 Presence of coronary angioplasty implant and graft; Z87.01 Personal history of pneumonia (recurrent); Z88.8 Allergy status to other drugs, medicaments and biological substances
CPT/HCPCS: 31622; 36415; 71046; 71250; 80053; 85025; 86713; 87070; 87102; 87116; 87205; 94640; J1956; J2704; J2930; J7120; J7613; G0378